=== PATIENT | female | born 1985 | race Caucasian/White ===

== ENCOUNTER 2017-02-26 18:30 | Emergency (ER) | payer MEDICAID ==
[~2017-02-26] VITALS: Ht 157.5 cm; Wt 79.8 kg
[2017-02-26 19:07] LABS: URINE BILIRUBIN - DIPSTICK 1+ (NEG); URINE BLOOD NEGATIVE (NEG)
--- NOTE | 2017-02-26 19:09 | Urgent Treatment Center Report ---
History of Present Issue Date/Time Seen by Provider 02/26/17 7446 Visit Reason Pt arrived:Walked Presenting Problem:PT BELIEVES THAT SHE MAY HAVE A UTI. PT ALSO C/O DIZZINESS AND BEING LIGHTHEADED. PT ADVISES SHE IS CURRENTLY 19 WEEKS Location if Accident: Onset of symptoms date/time:/ or onset unknown for:MEDICAL HX UNKNOWN Have you (or family members/close friends) recently traveled outside the [place]? N If Yes, where/when: Have you had exposure to infectious disease within the past month? TB? Other? 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 State that she has been feeling dizzy and light headed. States that for the last few days she just over all has not felt well SHe has been having some cramping like pain in the bottom of her stomach and thought maybe she had a UTI and that could be why she didn't feel well ALLERGIES Coded Allergies: azithromycin (Mild, 02/26/17) fluconazole (From DIFLUCAN) (Mild, 02/26/17) tetanus and diphtheria toxoids (Mild, 02/26/17) History Medical History General CAD? No Angina: No [place]: No Hypertension? No Hyperlipidemia? No CHF? No DVT? No PE? No COPD? No Asthma? No Anemia? No GERD? No Gastric ulcers? No GI Bleed? No Hernia? No Thyroid Problems? No Hypothyroidism? No CVA? No Seizures? No Diabetes? No Renal Insuffiency? No UTI? No Stones? No BPH? No GB Disease: No Nephritic Syndrome? No Asplenia? No Hepatitis? No Sickle Cell Disease? No Arthritis? No Migraines? No Cataracts? No Glaucoma? No MRSA? No HIV? No TB? No Anxiety? No Depression? No Cancer? No More? No Immunization HX DT/Tetanus Refuses Surgical Hx Previous Surgery?N Social History Smoking Hx Smoker: Never Smoker Tobacco: No Alcohol Alcohol: No Review of Systems All Other Systems Reviewed and Negative Comment Cramping like pain in the bottom of her abdomen and thinks she may have a UTI Physical Exam Vital Signs Vital Signs Date Time Temp Pulse Resp B/P Pulse O2 O2 Flow FiO2 Ox Delivery Rate 02/26 1846 97.4 107 20 105/79 98 General Appearance Appears ill, pale in color sitting on exam table Respiratory Status Yes: trachea midline, chest symmetrical, non tender chest. No: respiratory distress. Lung Sounds bilateral: normal breath sounds, lungs clear. 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 No Results/Orders Laboratory Tests 02/26/171858: Urine Test POSITIVE 02/26/171839: Urine Color YELLOW, Urine Appearance Clear, Urine pH 6.5, Ur Specific [place] 1.025, Urine Protein NEGATIVE, Urine Ketones 80, Urine Blood NEGATIVE, Urine Nitrate NEGATIVE, Urine Bilirubin 1+ H, Urine Urobilinogen 1.0, Ur Leukocyte Esterase NEGATIVE, Urine Glucose NEGATIVE Orders Procedure Date/time Status [facility] URINE 02/26 1859 Complete [place] URINE DIPSTICK 02/27 1840 Complete Progress [facility] Progress Notes Comment Due to patient being and significance of complaints it was recommended that patient be transfered to ER, ER notified report given and patient sent to room 11 Departure Departure Time of Disposition 1907 Disposition Still a Patient Clinical Impression Primary Impression: Abdominal pain Qualifiers: Abdominal location: unspecified location Qualified Code: R10.9 - Unspecified abdominal pain Condition STABLE at 1909
--- NOTE | 2017-02-26 19:09 | Urgent Treatment Center Report ---
History of Present Issue Date/Time Seen by Provider 02/26/17 8562 Visit Reason Pt arrived:Walked Presenting Problem:PT BELIEVES THAT SHE MAY HAVE A UTI. PT ALSO C/O DIZZINESS AND BEING LIGHTHEADED. PT ADVISES SHE IS CURRENTLY 19 WEEKS Location if Accident: Onset of symptoms date/time:/ or onset unknown for:MEDICAL HX UNKNOWN Have you (or family members/close friends) recently traveled outside the [place]? N If Yes, where/when: Have you had exposure to infectious disease within the past month? TB? Other? 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 State that she has been feeling dizzy and light headed. States that for the last few days she just over all has not felt well SHe has been having some cramping like pain in the bottom of her stomach and thought maybe she had a UTI and that could be why she didn't feel well ALLERGIES Coded Allergies: azithromycin (Mild, 02/26/17) fluconazole (From DIFLUCAN) (Mild, 02/26/17) tetanus and diphtheria toxoids (Mild, 02/26/17) History Medical History General CAD? No Angina: No [place]: No Hypertension? No Hyperlipidemia? No CHF? No DVT? No PE? No COPD? No Asthma? No Anemia? No GERD? No Gastric ulcers? No GI Bleed? No Hernia? No Thyroid Problems? No Hypothyroidism? No CVA? No Seizures? No Diabetes? No Renal Insuffiency? No UTI? No Stones? No BPH? No GB Disease: No Nephritic Syndrome? No Asplenia? No Hepatitis? No Sickle Cell Disease? No Arthritis? No Migraines? No Cataracts? No Glaucoma? No MRSA? No HIV? No TB? No Anxiety? No Depression? No Cancer? No More? No Immunization HX DT/Tetanus Refuses Surgical Hx Previous Surgery?N Social History Smoking Hx Smoker: Never Smoker Tobacco: No Alcohol Alcohol: No Review of Systems All Other Systems Reviewed and Negative Comment Cramping like pain in the bottom of her abdomen and thinks she may have a UTI Physical Exam Vital Signs Vital Signs Date Time Temp Pulse Resp B/P Pulse O2 O2 Flow FiO2 Ox Delivery Rate 02/26 1846 97.4 107 20 105/79 98 General Appearance Appears ill, pale in color sitting on exam table Respiratory Status Yes: trachea midline, chest symmetrical, non tender chest. No: respiratory distress. Lung Sounds bilateral: normal breath sounds, lungs clear. 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 No Results/Orders Laboratory Tests 02/26/171858: Urine Test POSITIVE 02/26/171839: Urine Color YELLOW, Urine Appearance Clear, Urine pH 6.5, Ur Specific [place] 1.025, Urine Protein NEGATIVE, Urine Ketones 80, Urine Blood NEGATIVE, Urine Nitrate NEGATIVE, Urine Bilirubin 1+ H, Urine Urobilinogen 1.0, Ur Leukocyte Esterase NEGATIVE, Urine Glucose NEGATIVE Orders Procedure Date/time Status [facility] URINE 02/26 1859 Complete [place] URINE DIPSTICK 02/27 1840 Complete Progress [facility] Progress Notes Comment Due to patient being and significance of complaints it was recommended that patient be transfered to ER, ER notified report given and patient sent to room 11 Departure Departure Time of Disposition 1907 Disposition Still a Patient Clinical Impression Primary Impression: Abdominal pain Qualifiers: Abdominal location: unspecified location Qualified Code: R10.9 - Unspecified abdominal pain Condition STABLE at 1909
[2017-02-26] MEDS ORDERED: METFORMIN ER500 M1 PO (19:19)
[2017-02-26] MEDS ORDERED: PRENATA1 CTB PO (19:21)
--- NOTE | 2017-02-26 19:41 | Emergency Room Report ---
History of Present Illness Time Seen by 1905 Presenting Problem in Triage Pt arrived:Walked Presenting Problem:DIZZINESS, THOUGHT SHE HAD A UTI. STATES SHE IS HAVING SOME PAINS IN VAGINAL AREA, BURNING WITH UNINATION. BLOOD SUGARS LOW. 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 N Clinical Suspician of Infection? N Mental Status: 1 - Regular (Normal Baseline) Sepsis Risk:Possible Sepsis Risk Have you (or family members/close friends) recently traveled outside the [place]? N If Yes, where/when: Have you had exposure to infectious disease within the past month? N TB? Other? Specify: Comment The patient is 19 weeks gestation . She is 2 para 1. She complains of intermittent suprapubic cramping pains for 2 weeks. They have been coming more constant over the past couple of days. She saw her language arts teacher's partner in the office on Tuesday or days ago for these symptoms as well as the fact that she had not felt the baby moving in a couple of days. They did an ultrasound on that day that was normal. She also told them that she thought she might have a UTI because of the pains, but they told her she did not have a UTI. No vaginal bleeding. She says she also has felt lightheaded today. She says her blood sugar was 77 this morning, but when she rechecked it later was 120. She is diabetic, taking metformin. She is not on insulin. She says she has a previous history with her first child of some sort of liver issue with the bile leaking into her abdomen at the time of delivery. Her first child was delivered at 38 weeks. The patient came in again because she wanted to be checked again for a UTI. She also wants her baby's heartbeat checked. She also says that she had [place] contractions with her first child and thought these might be those as well. The patient was seen in the urgent treatment center and sent to the emergency department for further evaluation. (Kelly SOUZA, Greg) Source patient, RN notes reviewed, old records Exam Limitations no limitations Cardiac Chest Pain Chest pain indicative of cardiac No Timing/Duration this evening Severity moderate ALLERGIES Coded Allergies: azithromycin (Mild, 02/26/17) fluconazole (From DIFLUCAN) (Mild, 02/26/17) tetanus and diphtheria toxoids (Mild, 02/26/17) Home Medications Reported Medications Metformin HCl (Metformin ER) 500 MG PO BID #2 VIT37/IRON/FOLIC ACID ([place] Chewable Tablet) 1 CTB PO DAILY #2 (Rajesh SOUZA,Hong Lopez) History Medical History General CAD? No Angina: No [place]: No Hypertension? No Hyperlipidemia? No CHF? No DVT? No PE? No COPD? No Asthma? No Anemia? No GERD? No Gastric ulcers? No GI Bleed? No Hernia? No Thyroid Problems? No Hypothyroidism? No CVA? No Seizures? No Diabetes? No Renal Insuffiency? No End Stage Renal Disease? No UTI? No Stones? No BPH? No GB Disease: No Nephritic Syndrome? No Asplenia? No Hepatitis? No Sickle Cell Disease? No Arthritis? No Migraines? No Cataracts? No Glaucoma? No MRSA? No HIV? No TB? No Anxiety? No Depression? No Cancer? No More? 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 (Greg Mendoza MD) Physical Exam Vital Signs Vital Signs Date Time Temp Pulse Resp B/P Pulse O2 O2 Flow FiO2 Ox Delivery Rate 02/26 2051 93 20 95/50 98 02/26 2013 93 20 100/52 98 02/26 1943 108/66 02/26 1906 98.4 101 20 108/66 98 02/26 1846 97.4 107 20 105/79 98 General Appearance normal appearance, no apparent distress Eye Exam - bilateral eye normal exam, bilateral eye PERRL, bilateral eye EOMI Ear, Nose, Throat hearing grossly normal, normal ENT inspection Neck normal inspection, non-tender, supple, full range of motion Respiratory Status Yes: trachea midline, chest symmetrical, non tender chest. No: respiratory distress. Lung Sounds bilateral: normal breath sounds, lungs clear. Cardiovascular normal exam, regular rate/rhythm, no peripheral edema, no gallop, no JVD, no murmur, no rub, normal peripheral pulses Peripheral Pulses Pulses normal Yes Gastrointestinal normal bowel sounds, soft, no organomegaly, no guarding, no rebound, tenderness (suprapubic), uterus consistent with gestational dates Extremities non-tender, normal range of motion, normal inspection Neurologic alert, normal exam, oriented x 3 Mental status normal mood/affect Skin intact, normal color, warm/dry (Kelly SOUZA, Greg) Comment fht 145 (Rajesh SOUZA,Hong Lopez) Medical Decision Making LABS/Meds/Orders Pt receiving controlled substance in ED? No Results/Orders Laboratory Tests 02/26/17 1950: Sodium 136, Potassium 3.8, Chloride 101, Carbon Dioxide 24, BUN 5 L, Creatinine 0.4 L, Estimated Creat Clear 262 H, Estimated GFR (MDRD) 189, Glucose 80, Calcium 9.0, Total Bilirubin 0.5, AST 12 L, ALT 20, Alkaline Phosphatase 62, Total Protein 7.7, Albumin 3.2 L, Globulin 4.5 H, Albumin/Globulin Ratio 0.7 L, WBC 8.0, RBC 4.45, Hgb 13.1, Hct 38.0, MCV 85.4, RDW 14.0, Plt Count 224, MPV 7.7, Gran % 73.7, Gran # 5.9, Lymphocytes % 22.4, Monocytes % 3.4, Eosinophils % 0.4, Basophils % 0.1, Lymphocytes # 1.8, Monocytes # 0.3, Eosinophils # 0.0, Basophils # 0.0, PUBS MCHC 34.3, MCH 29.3 02/26/17 1859: Urine Test POSITIVE 02/26/17 1840: Urine Color YELLOW, Urine Appearance Clear, Urine pH 6.5, Ur Specific [place] 1.025, Urine Protein NEGATIVE, Urine Ketones 80, Urine Blood NEGATIVE, Urine Nitrate NEGATIVE, Urine Bilirubin 1+ H, Urine Urobilinogen 1.0, Ur Leukocyte Esterase NEGATIVE, Urine Glucose NEGATIVE Current Medication Orders Sig/Gerard Start time Last Medication Dose Route Stop Time Status Admin Sodium Chloride 1,000 ML .STK-MED ONE 02/27 1948 DC IV Sodium Chloride 10 ML PRN PRN 02/26 1945 AC IV 02/27 1945 Sodium Chloride 1,000 ML .Q1H1M 02/26 1945 DC 02/26 IV 02/26 Orders Procedure Date/time Status IV SALINE LOCK 02/26 1946 Active GEN NSG/PT REQ (NOT FOR MEDS!) 02/26 1946 Active CBC WITH AUTO DIFF 02/26 1946 Complete CHEM 12 PROFILE 02/26 1946 Complete [place] URINE 02/26 1859 Complete [place] URINE DIPSTICK 02/27 1840 Complete Progress - 8:00 PM: At shift change, I have discussed the patient with Dr. Mena, who will assume care of the patient at this time. I have discussed all clinical information including history, physical and diagnostic study results. Preliminary diagnoses based on information available at this point have been recorded by me. Controlled substance administration and critical care statement are also preliminary, as of the time of handoff. (Greg Mendoza MD) Departure Departure Condition STABLE ED Critical Care Critical Care No (Greg Mendoza MD) Departure Time of Disposition 2101 Disposition DC Home or Self Care(routine) Clinical Impression Primary Impression: Abdominal pain affecting Secondary Impressions: Qualifiers: Weeks of gestation: 19 weeks Qualified Code: Z3A.19 - 19 weeks gestation of Patient Instructions DI for -- Discomforts and Remedies Additional Instructions call your ob dr for follow up Discharge Counseling Counseled pt/family regarding diagnosis, test results, medications/RX, follow up needs (Hong Mena MD) at 2005 at 2105
[2017-02-26 20:06] LABS: HEMOGLOBIN 13.1 g/dL (12.2-16.2); LYMPH # 1.8 K/mm3 (0.7-4.5); LYMPH % 22.4 % (10-50.0)
[2017-02-26 21:17] VITALS: BP 95/50
== END 2017-02-26 21:18 | disposition home or self-care (01) ==
LOC: UTC 18:30 → ER 18:43 → UTC 18:43 → ER 21:18
PROVIDERS: Emergency Medicine; Nurse Practitioner
DX: O26.892 Other specified pregnancy related conditions, second trimester (principal); R10.9 Unspecified abdominal pain; O24.112 Pre-existing type 2 diabetes mellitus, in pregnancy, second trimester; Z3A.19 19 weeks gestation of pregnancy; Z79.84 Long term (current) use of oral hypoglycemic drugs; E11.9 Type 2 diabetes mellitus without complications

== ENCOUNTER 2017-03-15 18:44 | Outpatient (CLI) | payer MEDICAID ==
[~2017-03-15] VITALS: Ht 157.5 cm; Wt 78.9 kg
[~2017-03-15 18:44] MED LIST: METFORMIN ER500 M1 PO; PRENATA1 CTB PO
[2017-03-15 19:15] VITALS: BP 101/64
[2017-03-15 19:38] LABS: URINE BILIRUBIN - DIPSTICK NEGATIVE (NEG); URINE BLOOD NEGATIVE (NEG)
[2017-03-15] MEDS ORDERED: DIABETA2.5 MG PO (19:39)
[2017-03-15 19:45] LABS: AMPHETAMINES/METAMPHETAMINES NEGATIVE ng/mL (<1000)
[2017-03-15 19:54] LABS: URINE SQUAMOUS CELLS 20-50 #/hpf (0-5)
== END 2017-03-15 20:05 ==
LOC: OB 18:44 → OBOUT 18:44
PROVIDERS: Obstetrics & Gynecology
DX: O26.92 Pregnancy related conditions, unspecified, second trimester (principal); Z3A.21 21 weeks gestation of pregnancy; R30.9 Painful micturition, unspecified

== ENCOUNTER 2017-04-24 19:15 | Emergency (ER) | payer MEDICAID ==
[~2017-04-24] VITALS: Ht 157.5 cm; Wt 81.2 kg
[~2017-04-24 19:15] MED LIST changes: +DIABETA2.5 MG PO
--- OUTSIDE RECORDS SUMMARY | 2017-04-24 19:40 | External Medical Summary Rpt | CCD ---
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 Name Role Phone [facility] Unavailable Unavailable [facility], [facility] Unavailable Unavailable [place], [facility] Unavailable Unavailable [facility]PITAL, [facility] Unavailable [facility]available [facility], [facility] Unavailable Unavailable ANESTHESIA [facility], [facility] ANESTHESIA [facility] EMERGENCY MEDICINE Unavailable Unavailable PHYSICIAN, EMERGENCY MEDICINE PHYSICIAN [facility] Un[facility], [facility], [facility] Unavailable Unavailable [facility], [facility], Unavailable Unavailable [facility]- Unavailable Unavailable ANT[facility]A, [facility]available [facility], [facility] Unavailable Unavailable EMERGENCY PHYS, [facility] Unavailable Unavailable HOSPITALS, [facility], Unavailable Unavailable [facility], Unavailable Unavailable PLLC, [facility] Unavailable [place] Continuity of Care Document - 03-04-2014 through 2016 Problems Code Diagnosis DOS Provider Status [id number] PRE-EXISTIN 03-07-2017 [facility] MELLITUS PREG 2ND TRI [id number] MATERNAL 03-07-2017 [facility] TRANSVERSE [facility] & OBLIQUE LIE NA/UNS [id number] MATERNAL 03-07-2017 [facility]NS SERV TYPE SCAR [facility] PREV DEL Z36 ENCOUNTER 03-07-2017 [facility] SCREENING OF MOTHER Z3A20 20 WEEKS 03-07-2017 [facility] OF [facility] [id number] OTHER SPEC 02-26-2017 [facility] RELATED [facility] COND 2ND TRIMESTER R1030 LOWER 02-26-2017 [facility]OM[facility]AL [facility] PAIN [facility] UNSPECIFIED Z3A19 19 WEEKS 02-26-2017 [facility], OF [facility] [id number] DECREASED 02-22-2017 [facility] MOV[facility] THIRD TRIMESTER NA/UNS Z3A18 18 WEEKS 02-22-2017 [facility] OF [facility] Z3A17 17 WEEKS 02-14-2017 [facility] OF [facility] Z3A15 15 WEEKS 01-31-2017 [facility] [id number] SUPERVISION 01-26-2017 [facility] RISK [facility] HOSPITALS UNS TRIMESTER O219 VOMITING OF 01-06-2017 [facility] UNSPECIFIED [facility] [id number] PRE-EXISTIN 01-06-2017 [facility] T[facility] 2 SERV DIABETES [facility] MELLITUS PREG 1ST TRI Z3A11 11 WEEKS 01-06-2017 [facility] OF [facility] Z8639 PERSONAL HX 01-06-2017 [facility] ENDOCRN [facility] NUTRITIONL& METAB DISEASE E119 TYPE 2 12-31-2016 [facility] WITHOUT COMPLICATIO NS O7589 OTHER 12-31-2016 [facility] NS LABOR & DELIVERY R102 PELVIC AND 12-31-2016 [facility] O021 MISSED 12-14-2016 [facility] O200 THREATENED 12-14-2016 [facility] Z3A08 8 WEEKS 12-14-2016 [facility] GESTATION HEALTH OF MEDICAL GROUP O2691 12-11-2016 [facility] RELATED HEALTH CONDITIONS IKRBY UNS 1ST TRIMESTER O9989 OTH DZ & 12-11-2016 [facility] CON[facility] COMP N EMERGENCY PREG PHYS [facility]IL[facility]TH PUERPERIUM R109 UNSPECIFIED 12-11-2016 [facility] ABDOMINAL N EMERGENCY PAIN PHYS Z3A01 LESS THAN 8 12-11-2016 [facility] WEEKS N EMERGENCY GESTATION PHYS OF [id number] OTHER LONG 12-11-2016 [facility] TERM [facility]ALTH CURRENT [place] DRUG THERAPY O4691 ANTEPARTUM 12-07-2016 [facility] HEMORRHAGE HEALTH OF UNS FIRST CURT TRIMESTER Z3480 ENC 12-07-2016 [facility] SUPERVISION HEALTH OF OT NORMAL [place] PREG UNS TRIMESTER L74696 OTHER SPEC 12-04-2016 [facility] RELATED COND UNS TRIMESTER R1013 EPIGASTRIC 12-04-2016 EMERGENCY PAIN MEDICINE PHYSICIAN N921 EXCESS & 11-23-2016 [facility] FREQUENT HEALTH OF MENSTRUATIO [place] N W/IRREGULAR CYCLE K50108 MATERNAL 11-23-2016 [facility] TRANS SCAR [place] PREV DEL Z139 ENCOUNTER 11-23-2016 [facility] FOR [facility] SCREENING HOLDINGS UNSPECIFIED Z3490 ENC 11-23-2016 LAB YONG SUPERVISION SH[facility] NORMAL HOLDINGS PREG UNS UNS TRIMESTER L270 GEN SKIN 11-09-2016 [facility] D/T [facility] & [facility] MED TAKEN INTERNALLY [id number] ADVERSE EFF 11-09-2016 [facility] ANTI-INFECT [facility]OSPITAL /PARASIT INIT ENC [id number] ADVERS EFF 11-09-2016 [facility] O[facility] RX MEDS N EMERGENCY BIO PHYS SUBSTANCES INIT ENC E039 HYPOTHYROID 11-08-2016 [facility] ISM [facility] UNSPECIFIED E6609 OTHER 11-08-2016 [facility] OB[facility]ITY DUE MEDICAL TO EXCESS CLINIC, [facility] CALORIES N390 URINARY 11-08-2016 [facility] TRACT MEDICAL INFECTION CLINIC, [facility] SITE NOT SPECIFIED R300 DYSURIA 11-08-2016 [facility] R5383 OTHER 11-08-2016 [facility] FATIGUE [facility] Z1321 ENCOUNTER 11-08-2016 [facility] FOR [facility] SCREENING FOR NUTRITIONAL DISORDER G00775 ENCOUNTER 11-08-2016 [facility] FOR [facility] SCREENING FOR LIPOID DISORDERS Z6832 BODY MASS 11-08-2016 [facility] INDEX BMI MEDICAL 32.0-32.9 CLINIC, [facility] ADULT M419 SCOLIOSIS 07-24-2016 [facility]Y, [facility] M542 CERVICALGIA 07-24-2016 [facility] CHERRY, [facility] M545 LOW BACK 07-24-2016 S[facility] Gilmore PAIN DILIP, [facility] Z113 ENCOUNTER 07-22-2016 [facility] SCREEN MEDICAL INFECTIONS CLINIC, [facility] SEXL MODE TRANSMISSN Z6831 BODY MASS 07-22-2016 [facility] INDEX BMI MEDICAL 31.0-31.9 CLINIC, [facility] ADULT J029 ACUTE 07-13-2016 [facility] PHARYNGITIS [facility] UNSPECIFIED N3001 ACUTE 07-13-2016 [facility] CYSTITIS [facility] WITH HEMATURIA R1110 VOMITING 06-06-2016 [facility] UNSPECIFIED N EMERGENCY PHYS M791 MYALGIA 04-23-2016 [facility] R079 CHEST PAIN 04-23-2016 [facility] K529 NONINFECTIV 03-02-2016 [facility] E [facility] GASTROENTER ITIS & COLITIS UNS D22186 PAIN IN 02-09-2016 [facility] LEFT MEDICAL SHOULDER CLINIC, [facility] R739 HYPERGLYCEM 02-04-2016 [facility] IA [facility] UNSPECIFIED Z205 CONTACT W/ 02-04-2016 [facility] & & SUSPECTED [facility] EXPOSURE VIRAL HEPATITIS E1165 TYPE 2 01-26-2016 EMERGENCY DIABETES MEDICINE MELLITUS PHYSICIAN WITH HYPERGLYCEM IA G8929 OTHER 01-12-2016 [facility] & CHRONIC [facility] PAIN N72 INFLAMMATOR 01-12-2016 [facility] & Y DISEASE [facility] OF CERVIX UTERI Q71725 PAIN IN 01-06-2016 [facility] [place] LEFT KNEE DLIIP [id number] CONTUSION 01-06-2016 [facility] & OF LEFT [facility] KNEE INITIAL ENCOUNTER [id number] STRAIN 12-31-2015 EMERGENCY MUSCLE & MEDICINE TENDON BACK PHYSICIAN WALL THORAX INIT ENC [id number] SPRAIN 12-31-2015 EMERGENCY CALCANEOFIB MEDICINE ULAR LIG LT PHYSICIAN ANKLE INITIAL ENC R200 ANESTHESIA 12-23-2015 EMERGENCY OF SKIN MEDICINE PHYSICIAN Z760 ENCOUNTER 12-11-2015 [facility] FOR ISSUE MEDICAL OF REPEAT CLINIC, [facility] PRESCRIPTIO N Q33237 OTHER 11-14-2015 [facility] & MUCOPURULEN [facility] T CONJUNCTIVI TIS BILATERAL H1033 UNSPECIFIED 11-14-2015 EMERGENCY ACUTE MEDICINE CONJUNCTIVI PHYSICIAN TIS BILATERAL J069 ACUTE UPPER 11-10-2015 [facility] RESPIRATORY INFECTION UNSPECIFIED R79527 UNSPECIFIED 11-10-2015 [facility] ASTHMA [facility] UNCOMPLICAT ED R05 COUGH 11-10-2015 [facility] R509 FEVER 11-10-2015 [facility] & UNSPECIFIED [facility] 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 11-10-2015 [facility] & CURRENT USE [facility] OF INSULIN E860 DEHYDRATION 10-29-2015 EMERGENCY MEDICINE PHYSICIAN R112 NAUSEA WITH 10-29-2015 [facility] & VOMITING [facility] UNSPECIFIED R197 DIARRHEA 10-29-2015 [facility] & UNSPECIFIED [facility] N3000 ACUTE 10-05-2015 [facility] CYSTITIS [facility] WITHOUT HEMATURIA R5382 CHRONIC 09-19-2015 [facility] FATIGUE MEDICAL UNSPECIFIED CLINIC, P[facility] H06263I INSECT BITE 09-12-2015 EMERGENCY MEDICINE NONVENOMOUS PHYSICIAN LT FOREARM INITIAL ENC E282 POLYCYSTIC 08-09-2015 [facility] OVARIAN [facility] SYNDROME J449 CHRONIC 08-09-2015 [facility] OBSTRUCTIVE [facility] PULMONARY DISEASE UNS P80565 PERSONAL 08-09-2015 [facility] & HISTORY OF [facility] URINARY TRACT INFECTIONS E669 OBESITY 07-23-2015 [facility] UNSPECIFIED [facility]IMARY CARE- [facility] N946 DYSMENORRHE 07-23-2015 [facility] A PRIMARY UNSPECIFIED CARE- AN[facility] M2550 PAIN IN 04-11-2015 [facility] UNSPECIFIED MEDICAL JOINT CLINIC, [facility] Z309 ENCOUNTER 04-11-2015 [facility] FOR MEDICAL CONTRACEPTI CLINIC, [facility] VE MANAGEMENT UNS 35358 OBESITY, 03-07-2015 [facility] UNSPECIFIED MEDICAL CLINIC, [facility] 6253 DYSMENORRHE 03-07-2015 [facility] A MEDICAL CLINIC, [facility] 04048 CHRONIC 03-07-2015 [facility] FATIGUE MEDICAL SYNDROME CLINIC, [facility] 5990 URINARY 02-09-2015 [facility] & TRACT [facility] INFECTION SITE NOT SPECIFIED 92418 HEMATURIA 02-09-2015 [facility] & UNSPECIFIED [facility] 5950 ACUTE 01-15-2015 [facility] CYSTITIS [facility] 56666 ABDOMINAL 12-10-2014 [facility] S. PAIN OTHER DILIP SPECIFIED SITE 7831 ABNORMAL 11-28-2014 [facility] WEIGHT GAIN MEDICAL CLIN[facility], [facility] V221 SUPERVISION 11-10-2014 [facility] OF OTHER HEALTH OF NORMAL [place] 01463 ABN FETL 11-09-2014 [facility] HRT H RATE/RHYTHM ANESTHESIA DELIV W/WO PSC ANTPRTM COND 52009 PRIMARY 11-09-2014 [facility] UTERINE H INERTIA ANESTHESIA WITH PSC DELIVERY 5768 OTHER 11-08-2014 [facility] SPECIFIED REGIONAL DISORDERS MEDICAL OF BILIARY CENTE TRACT 45681 LIVER 11-08-2014 [facility] BILIARY REGIONAL TRACT D/O MEDICAL PREG DEL CENTE W/WO ANTPRTM 67250 OTH CURRENT 11-08-2014 [facility] MATERNAL REGIONAL CCE MEDICAL W/DELIVERY CENTE 69714 FETOPELVIC 11-08-2014 [facility] DISPROPORTI REGIONAL ON, MEDICAL DELIVERED CENTE 69033 OTHER AND 11-08-2014 [facility] UNSPECIFIED REGIONAL UTERINE MEDICAL INERTIA CENTE W/DELIVERY V0251 CARRIER/ALISSA 11-08-2014 [facility] CENTE STREPTOCOCC [place] V270 OUTCOME OF 11-08-2014 [facility] DELIVERY REGIONAL SINGLE MEDICAL LIVEBORN CENTE 32218 EXCESS 10-10-2014 [facility] [place] AFFECT MGMT MOTH ANTPRTM Allergies, Adverse Reactions, Alerts Clinical Alert Notifications Alert Diabetes: no eye exam in the last 365 days Diabetes: no lipid panel in the last 365 days Diabetes: no urine protein screening in the last 365 days Medications Na ND Rx Da Fi Fi Am Da Di Ph RX Ph St me C No te ll ll ou ys ag ar # ys at rm s nt no ma ic us Or Da si cy ia de te s n re d NC 68 09 10 12 2 00 WA Ac OM 38 -1 -1 .0 00 L- ti ET 20 8- 3- 00 07 MA ve LOPEZ 04 20 20 42 RT ZI 00 17 17 09 NE 1 38 PH AR 12 MA .5 CY MG #4 93 TA BL ET ME 53 09 10 12 30 00 WA Ac TF 74 -1 -1 0. 00 L- ti OR 60 8- 3- 00 07 MA ve VT 17 20 20 0 42 RT N 80 17 17 09 HC 1 48 PH L AR ER MA CY 50 0 #4 MG 93 TA BL ET FR 99 09 10 10 25 00 CO Ac EE 07 -1 -1 0. 00 L- ti ST 30 8- 3- 00 08 MA ve YL 70 20 20 0 84 RT E 82 17 17 17 LI 7 00 PH TE AR MA TE CY ST #4 ST 93 RI P FR 99 09 10 10 25 00 WA Ac EE 07 -1 -1 0. 00 L- ti ST 30 8- 3- 00 08 MA ve YL 13 20 20 0 84 RT E 00 17 17 17 28 1 01 PH G AR LA MA NC CY ET S #4 93 GL 00 09 10 30 30 00 CO Ac YB 09 -1 -1 .0 00 L- ti UR 38 8- 3- 00 07 MA ve ID 34 20 20 43 RT E 30 17 17 01 2. 1 50 PH 5 AR MG MA CY TA BL #4 ET 93 ME 53 08 09 12 30 00 WA Ac TF 74 -2 -1 0. 00 L- ti OR 60 1- 5- 00 07 MA ve VT 17 20 20 0 42 RT N 80 17 17 09 HC 1 48 PH L AR ER MA CY 50 0 #4 MG 93 TA BL ET NC 68 08 09 12 2 00 WA Ac OM 38 -2 -1 .0 00 L- ti ET 20 1- 5- 00 07 MA ve LOPEZ 04 20 20 42 RT ZI 00 17 17 09 NE 1 38 PH AR 12 MA .5 CY MG #4 93 TA BL ET NC 68 08 09 12 2 00 WA Ac OM 38 -1 -0 .0 00 L- ti ET 20 4- 8- 00 07 MA ve LOPEZ 04 20 20 42 RT ZI 00 17 17 09 NE 1 38 PH AR 12 MA .5 CY MG #4 93 TA BL ET FR 99 07 08 10 25 00 WA Ac EE 07 -3 -2 0. 00 L- ti ST 30 1- 5- 00 08 MA ve YL 70 20 20 0 84 RT E 82 17 17 17 LI 7 00 PH TE AR MA TE CY ST #4 ST 93 RI P FR 99 07 08 10 25 00 WA Ac EE 07 -3 -2 0. 00 L- ti ST 30 1- 5- 00 08 MA ve YL 13 20 20 0 84 RT E 00 17 17 17 28 1 01 PH G AR LA MA NC CY ET S #4 93 NC 68 07 08 12 2 00 WA Ac OM 38 -2 -1 .0 00 L- ti ET 20 5- 8- 00 07 MA ve LOPEZ 04 20 20 42 RT ZI 00 17 17 09 NE 1 38 PH AR 12 MA .5 CY MG #4 93 TA BL ET ME 53 07 08 12 30 00 WA Ac TF 74 -2 -1 0. 00 L- ti OR 60 5- 8- 00 07 MA ve VT 17 20 20 0 42 RT N 80 17 17 09 HC 1 48 PH L AR ER MA CY 50 0 #4 MG 93 TA BL ET NC 65 06 07 20 5 00 RI Ac OM 16 -2 -1 .0 00 TE ti ET 20 0- 4- 00 01 ve LOPEZ 74 20 20 66 AI ZI 51 17 17 92 D NE 0 43 PH AR 12 MA .5 CY MG #3 94 TA 3 BL ET ME 62 06 07 90 30 00 RI Ac TF 75 -1 -1 .0 00 TE ti OR 60 9- 4- 00 01 ve VT 14 20 20 64 AI N 20 17 17 93 D HC 1 66 PH L AR ER MA CY 50 0 #3 MG 94 3 TA BL ET FR 99 06 07 10 25 00 RI Ac EE 07 -0 -0 0. [address] 30 7- 7- 00 01 ve YL 13 20 20 0 66 AI E 00 17 17 62 D 28 1 61 PH G AR LA MA NC CY ET S #3 94 3 NC 00 06 07 30 30 00 RI Ac EN 90 -0 -0 .0 00 TE ti AT 45 7- 7- 00 01 ve AL 31 20 20 66 AI 36 17 17 61 D TA 0 97 PH BL AR ET MA CY #3 94 3 FR 99 06 07 1. 30 00 RI Ac EE 07 -0 -0 [address] 30 7- 7- 0 01 ve YL 70 20 20 66 AI E 91 17 17 62 D FR 4 59 PH EE AR DO MA M CY LI TE #3 94 ME 3 TE R FR 99 06 07 10 25 00 RI Ac EE 07 -0 -0 0. [address] 30 7- 7- 00 01 ve YL 70 20 20 0 66 AI E 82 17 17 62 D LI 7 60 PH TE AR MA TE CY ST #3 ST 94 RI 3 P PH 42 05 06 10 3 00 RI Ac EN 19 -2 -1 .0 00 TE ti AZ 20 2- 6- 00 01 ve OP 80 20 20 66 AI YR 20 17 17 24 D ID 1 09 PH IN AR E MA 20 CY 0 MG #3 94 TA 3 B CI 00 05 06 20 10 00 RI Ac NC 14 -2 -1 .0 00 TE ti OF 39 2- 6- 00 01 ve LO 92 20 20 66 AI XA 80 17 17 24 D CI 1 10 PH N AR HC MA L CY 50 0 #3 MG 94 3 TA B FL 16 05 06 2. 4 00 RI Ac UC 71 -2 -1 00 00 TE ti ON 40 2- 6- 0 01 ve AZ 69 20 20 66 AI OL 30 17 17 24 D E 1 11 PH 20 AR 0 MA MG CY TA #3 BL 94 ET 3 ME 62 05 05 90 30 00 RI Ac TF 75 -0 -2 .0 00 TE ti OR 60 2- 6- 00 01 ve VT 14 20 20 64 AI N 20 17 17 93 D HC 1 66 PH L AR ER MA CY 50 0 #3 MG 94 3 TA BL ET ME 62 03 05 90 30 00 RI Ac TF 75 -3 -0 .0 00 TE ti OR 60 1- 5- 00 01 ve VT 14 20 20 64 AI N 20 17 17 93 D HC 1 66 PH L AR ER MA CY 50 0 #3 MG 94 3 TA BL ET ME 00 03 04 30 30 00 KE Ac TF 09 -1 -0 .0 00 NT ti OR 37 5- 7- 00 01 UC ve VT 26 20 20 04 KY N 71 17 17 21 HC 0 19 CV L S ER PH AR 50 MA 0 CY MG LL TA C, BL ET DB A CV S PH AR MA CY #6 94 2 IB 55 02 02 90 30 00 ES Ac UP 11 -0 -2 .0 00 TI ti RO 10 2- 4- 00 00 LL ve FE 68 20 20 34 N 40 17 17 58 CL 80 5 26 IN 0 IC MG PH TA AR BL MA ET CY ME 60 01 02 30 30 00 ES Ac TF 50 -2 -1 .0 00 TI ti OR 50 7- 7- 00 00 LL ve VT 26 20 20 33 N 00 17 17 95 CL HC 2 67 IN L IC ER PH 50 AR 0 MA MG CY TA BL ET FONTANA 53 01 02 6. 3 00 RI Ac LF 48 -2 -1 00 00 TE ti AM 90 4- 7- 0 01 ve ET 14 20 20 63 AI HO 60 17 17 05 D XA 1 48 PH ZO AR LE MA -T CY MP #3 DS 94 3 TA BL ET RA 11 01 02 1. 3 00 RI Ac 82 -2 -1 00 00 TE ti VT 23 4- 7- 0 01 ve CO 58 20 20 63 AI NA 24 17 17 05 D ZO 0 49 PH LE AR 3 MA CY CO MB #3 O 94 PA 3 CK CE 00 12 01 21 7 00 WA Ac PH 09 -1 -1 .0 00 LG ti AL 33 9- 3- 00 01 RE ve EX 14 20 20 67 EN IN 70 16 17 54 S 5 16 07 50 66 0 4 MG CA PS UL E NC 10 12 01 12 3 00 WA Ac OM 70 -1 -1 .0 00 LG ti ET 20 9- 3- 00 01 RE ve LOPEZ 00 20 20 67 EN ZI 35 16 17 54 S NE 0 17 07 66 25 4 MG TA BL ET Results Labs Lab Lab Date Result Refere Interp Status Commen Order Detail nces retati t Range on RUBV IgG Ser Ql (04-01-2017 14:02) RUBV POS complet IgG Ser 017 POSITIV ed Ql 14:02 E L Comment: (NOTE) Comment: Rubella IgG Antibody Result Interpretation: Comment: . Comment: Negative: Comment: Rubella IgG antibody not detected. This indicates the absence of Comment: immunity. Negative results do not preclude recent primary infection Comment: if the sample was collected very early during the acute stage of Comment: infection. Comment: . Comment: Positive: Comment: Rubella IgG antibody detected. This indicates acute or past infection Comment: or immunity as the result of vaccination. Comment: . Comment: Indeterminate: Comment: Rubella IgG antibody detected. This indicates a low level response Comment: to vaccination which may require revaccination. Repeat testing in Comment: 10 to 14 days with a new sample may be helpful. Comment: . Comment: Comment: T pallidum IgG Ser Ql IA (04-01-2017 14:02) T NR complet pallidu 017 NONREAC ed m IgG 14:02 TIVE L Ser Ql IA Comment: Nonreactive. No serologic evidence of syphilis. No follow-up necessary unless Comment: clinically indicated (e.g., early syphilis). HCV Ab SerPl Ql EIA (04-01-2017 14:02) HCV Ab NEG complet SerPl 017 NEGATIV ed Ql EIA 14:02 E L Comment: Reference Range: Negative HBV surface Ag SerPl Ql EIA (04-01-2017 14:02) HBV NEG complet surface 017 NEGATIV ed Ag 14:02 E L SerPl Ql EIA Comment: Reference Value: Negative Glucose SerPl-mCnc (04-01-2017 14:02) Glucose 169 74-99 complet 017 mg/dL ed SerPl-m 14:02 Cnc C trach+GC DNA XXX PCR (04-01-2017 13:55) Bacteri Referen complet a XXX 017 ce ed Anaerob 13:55 range: e+Aerob No DNA e Cult for Neisser ia gonorrh oeae detecte d. Bacteri (NOTE) complet a XXX 017 ed Anaerob 13:55 e+Aerob e Cult Bacteri [id number] complet a XXX 017 09 ed Anaerob 13:55 negativ e+Aerob e e Cult (qualif ier value) SCT NGNEG NEGATIV E for Neisser ia gonorrh oeae DNA by nucleic acid amplifi cation. L Chlamydia DNA XXX Ql PCR (04-01-2017 13:55) Bacteri Referen complet a XXX 017 ce ed Anaerob 13:55 Range: e+Aerob No DNA e Cult for Chlamyd ia trachom atis plasmid detecte d. Bacteri (NOTE) complet a XXX 017 ed Anaerob 13:55 e+Aerob e Cult Bacteri [id number] complet a XXX 017 09 ed Anaerob 13:55 negativ e+Aerob e e Cult (qualif ier value) SCT CTNEG NEGATIV E for Chlamyd ia trachom atis plasmid by nucleic acid amplifi cation. L Bacteria Ur Cult (04-01-2017 13:55) Bacteri [id number] complet a XXX 017 9 ed Anaerob 13:55 normal e+Aerob cliff e Cult (findin g) SCT UMXF Mixed urogeni rachel or skin cliff present . Suggest appropr iate recolle ction with timely deliver y to the laborat or, if clinica lly indicat ed. L Bacteri [id number] complet a XXX 017 10,000- ed Anaerob 13:55 100,000 e+Aerob CFU/ml e Cult L CC XXX NOTAP complet VC-aCnc 017 NOT ed 13:55 APPLICA BLE L SPECIME URNG complet N 017 GUTIERREZ ed CONTAIN 13:55 TOP ER COLLECT INFO: ION TUBE FOR URINE L Urinalysis dipstick W Reflex Microscopic panel in Urine (03-15-2017 18:55) Bacteri 2+ O complet a 017 ed [Presen 18:55 ce] in Urine sedimen t by Light microsc opy Mucus 2+ OCC complet [Presen 017 ed ce] in 18:55 Urine sedimen t by Light microsc opy Erythro OCC 0 complet cytes 017 ed [Presen 18:55 ce] in Urine sedimen t by Light microsc opy Epithel 20-50 0#/hp complet ial 017 f - ed cells.s 18:55 5#/hp quamous f [Presen ce] in Urine sedimen t by Microsc opy high power field Leukocy 3-5 O complet bruce 017 wbc/hpf ed [#/volu 18:55 me] in Urine Drugs identified in Urine by Screen method (03-15-2017 18:55) Ampheta NEGATIV <1000 complet mine 017 E ed [Presen 18:55 ce] in Urine by Screen method 11-Hydr NEGATIV <50 complet oxy 017 E ed delta-9 18:55 tetrahy drocann abinol [Presen ce] in Unspeci fied specime n Urinalysis dipstick W Reflex Microscopic panel in Urine (03-15-2017 18:55) Appeara SL CLEAR complet nce of 017 CLOUDY ed Urine 18:55 Bilirub NEGATIV NEG complet in 017 E ed [Presen 18:55 ce] in Urine by Test strip Erythro NEGATIV NEG complet cytes 017 E ed [Presen 18:55 ce] in Urine Color YELLOW YELLOW complet of 017 ed Urine 18:55 Ketones NEGATIV NEG complet 017 E ed [Presen 18:55 ce] in Urine by Automat ed test strip Mucus NEGATIV NEG complet [Presen 017 E ed ce] in 18:55 Urine sedimen t by Light microsc opy Nitrite NEGATIV NEG complet 017 E ed [Presen 18:55 ce] in Urine by Test strip Urobili 0.2 NEG complet nogen 017 ed [Presen 18:55 ce] in Urine by Test strip Urine test by rapid immunoassa (02-26-2017 18:59) Urine POSITIV NEG complet pregnan 017 E ed cy test 18:59 by rapid immunoa ssa Urinalysis macro (dipstick) panel in Urine (02-26-2017 18:40) Appeara Clear CLEAR complet nce of 017 ed Urine 18:40 Bilirub 1+ NEG Abnorma complet in 017 l ed [Presen 18:40 ce] in Urine by Test strip Erythro NEGATIV NEG complet cytes 017 E ed [Presen 18:40 ce] in Urine Color YELLOW YELLOW complet of 017 ed Urine 18:40 Ketones 80 NEG complet 017 ed [Presen 18:40 ce] in Urine by Automat ed test strip Leukocy NEGATIV NEG complet te 017 E ed esteras 18:40 e [Presen ce] in Urine by Automat ed test strip Nitrite NEGATIV NEG complet 017 E ed [Presen 18:40 ce] in Urine by Test strip Urobili 1.0 NEG complet nogen 017 ed [Presen 18:40 ce] in Urine by Test strip B-HCG SerPl-aCnc (12-11-2016 20:02) Comment: Expected BHCG in apparently healthy, non- individuals: <4.83 mIU/mL Comment: BHCG values between 4.83 and 25 mIU/mL are considered indeterminate for ; recollect in 48 hours and test again. Comment: BHCG values >25 mIU/mL are considered indicative of . Comment: Expected BHCG values in females at defined gestational ages: Comment: 1-10 weeks 60-150,000 mIU/mL Comment: 11-15 weeks 12,000-150,000 mIU/mL Comment: 16-22 weeks 9,000- 60,000 mIU/mL Comment: 23-40 weeks 1,700-100,000 mIU/mL HGC 39820.0 complet Intact+ 017 0 ed B 20:02 mIU/mL SerPl-a Cnc Comp Metab 1998 Pnl SerPl (12-11-2016 20:02) Comment: Abnormal estimated GFR should be followed by more specific studies to confirm end stage chronic renal disease. The equation used for calculation may not be accurate for patients less than 19 years old, greater than 70 years old, patients at extremes Anion 14.1 complet Gap3 017 mmol/L ed SerPl-s 20:02 Cnc BUN/Cre 8.0 7.1-23. complet at 017 5 ed SerPl 20:02 Albumin 1.2 1.0-2.0 complet /Glob 017 g/dL ed SerPl 20:02 Globuli 3.4 complet n Ur 017 gm/dL ed Elph-mC 20:02 nc GFR/BSA 146 >60 complet .pred 017 mL/min/ ed SerPl 20:02 1.73 MDRD-Ar VRat Bilirub 0.7 0.2-1.3 complet 017 mg/dL ed SerPl-m 20:02 Cnc ALP 46 U/L 38-126 complet SerPl-c 017 ed Cnc 20:02 AST 12-11-2 43 U/L 15-46 complet SerPl-c 017 ed Cnc 20:02 ALT 2 90 U/L 13-69 complet SerPl w 017 ed 20:02 P-5'-P- cCnc Albumin 4.20 3.50-5. complet 017 g/dL 00 ed SerPl-m 20:02 Cnc Prot 7.6 6.3-8.2 complet SerPl-m 017 g/dL ed Cnc 20:02 Calcium 9.4 8.4-10. complet 017 mg/dL 2 ed XXX-sCn 20:02 c CO2 27.0 26.0-30 complet SerPl-s 017 mmol/L .0 ed Cnc 20:02 Chlorid 102 98-107 complet e 017 mmol/L ed SerPl-s 20:02 Cnc Potassi 4.1 3.5-5.1 complet um 017 mmol/L ed Bld-sCn 20:02 c Sodium 12-11- 139 137-145 complet Bld-sCn 017 mmol/L ed c 20:02 Creat 2 0.50 0.60-1. complet Bld-mCn 017 mg/dL 30 ed c 20:02 BUN 2 4 mg/dL 7-20 complet Bld-mCn 017 ed c 20:02 Glucose 99 74-98 complet 017 mg/dL ed Bld-mCn 20:02 c CBC W Diff pnl,unspecified Bld (12-11-2016 20:02) nRBC/10 12-11-2 0.0 0.0-0.0 complet 0 WBC 017 /100 ed Bld 20:02 WBC Manual- Rto Imm 12-11-2 0.03 0.00-0. complet Granulo 017 10*3/mm 06 ed cytes # 20:02 3 Bld Basophi 12-11-2 0.01 0.00-0. complet ls # 017 10*3/mm 20 ed Bld 20:02 3 Auto Eosinop 12-11-2 0.04 0.00-0. complet hil # 017 10*3/mm 70 ed Bld 20:02 3 Auto Monocyt 24-2 0.44 0.00-0. complet es # 017 10*3/mm 90 ed Bld 20:02 3 Auto Lymphoc 24-2 2.22 0.60-3. complet ytes # 017 10*3/mm 40 ed Bld 20:02 3 Auto Neutrop 24-2 6.14 2.00-6. complet hils # 017 10*3/mm 90 ed Bld 20:02 3 Auto Imm 24-2 0.3 % 0.0-0.6 complet Granulo 017 ed cytes/l 20:02 euk NFr Bld Basophi 24-2 0.1 % 0.0-2.5 complet ls/leuk 017 ed NFr 20:02 Bld Auto Eosinop 24-2 0.5 % 0.0-7.0 complet hil/steven 017 ed k NFr 20:02 Bld Auto Monocyt 24-2 5.0 % 0.0-12. complet es/leuk 017 0 ed NFr 20:02 Bld Auto Lymphoc 24-2 25.0 % 10.0-50 complet ytes/le 017 .0 ed uk NFr 20:02 Bld Auto Neutrop 24-2 69.1 % 37.0-80 complet hils/le 017 .0 ed uk NFr 20:02 Bld Auto Platele 24-2 221 130-400 complet t # Bld 017 10*3/mm ed Auto 20:02 3 PMV Bld 24-2 9.3 fL 6.0-12. complet Auto 017 0 ed 20:02 RDW RBC 24-2 41.7 fl 37.0-54 complet Auto 017 .0 ed 20:02 RDW RBC 24-2 13.4 % 11.5-14 complet 017 .5 ed Auto-Rt 20:02 o MCHC 24-2 34.5 30.0-37 complet RBC 017 g/dL .0 ed Auto-mC 20:02 nc MCH RBC 24-2 29.9 pg 27.0-31 complet Qn 017 .0 ed Auto 20:02 MCV RBC 24-2 86.6 fL 81.0-99 complet Auto 017 .0 ed 20:02 Hct VFr 06-24-2 38.8 % 37.0-47 complet Bld 017 .0 ed Auto 20:02 Hgb -24-2 13.4 12.0-16 complet Bld-mCn 017 g/dL .0 ed c 20:02 RBC # 24-2 4.48 4.20-5. complet Bld 017 10*6/mm 40 ed Auto 20:02 3 WBC 24-2 8.88 4.80-10 complet nRBC 017 10*3/mm .80 ed cor # 20:02 3 Bld UA Dipstick Pnl Ur (12-11-2016 19:50) Comment: Urine microscopic not indicated. Urobili 12-11-2 1.0 0.2 - complet nogen 017 E.U./dL 1.0 ed Ur Ql 19:50 E.U./dL Strip Nitrite 12-11-2 [id number] Negativ complet Ur Ql 017 09 e ed Strip 19:50 Negativ e SCT Leukocy 12-11-2 [id number] Negativ complet te 017 09 e ed esteras 19:50 Negativ e Ur Ql e SCT Strip.a uto Prot Ur 12-11-2 [id number] Negativ complet Ql 017 09 e ed Strip 19:50 Negativ e SCT Hgb Ur 24-2 [id number] Negativ complet Ql 017 09 e ed Strip.a 19:50 Negativ uto e SCT Bilirub 12-11-2 [id number] Negativ complet Ur Ql 017 09 e ed Strip 19:50 Negativ e SCT Ketones 12-11-2 [id number] Negativ complet Ur Ql 017 09 e ed Strip 19:50 Negativ e SCT Glucose 24-2 [id number] Negativ complet Ur 017 09 e ed Strip-m 19:50 Negativ Cnc e SCT Sp Gr 12-11-2 1.020 1.005-1 complet Ur 017 .030 ed Strip 19:50 pH Ur 12-11-2 6.5 5.0-8.0 complet Strip.a 017 ed uto 19:50 Clarity 24-2 Slightl Clear complet Ur 017 y ed 19:50 Cloudy Color 12-11-2 [id number] Yellow, complet Ur 017 09 Straw ed 19:50 Yellow color SCT URINALYSIS (03-19-2014 15:30) Comment: COMMENTS: RM1 NO PCP\.br\ EPITHEL 1-4 complet IAL 014 /HPF ed CELLS 15:30 SOURCE: *NO complet 014 SOURCE ed 15:30 GIVEN* LEUKOCY Negativ NEGATIV complet TE 014 e E ed ESTERAS 15:30 E NITRITE Negativ NEGATIV complet 014 e E ed 15:30 UROBILI 0.2 0.2 complet NOGEN 014 E.U./DL ed 15:30 PROTEIN Negativ NEGATIV complet 014 e MG/DL E ed 15:30 PH 6.5 5.0-7.0 complet URINE 014 ed 15:30 BLOOD Negativ NEGATIV complet 014 e E ed 15:30 SPECIFI 1.010 1.005-1 complet C 014 .030 ed GRAVITY 15:30 KETONES Negativ NEGATIV complet 014 e MG/DL E ed 15:30 BILIRUB Negativ NEGATIV complet IN 014 e E ed 15:30 GLUCOSE Negativ NEGATIV complet URINE 014 e G/DL E ed 15:30 CLARITY Clear CLEAR complet URINE 014 ed 15:30 COLOR Yellow YELLOW complet 014 ed 15:30 TEST URINE (03-19-2014 15:30) Comment: COMMENTS: RM1 NO PCP\.br\ PREGNAN POSITIV NEGATIV complet CY TEST 014 E E ed URINE 15:30 COMPHREHENSIVE METABOLIC PANEL (03-04-2014 21:10) Comment: COMMENTS: RM 1/NO PCP\.br\ BUN/CRE 11.0 6.0-25. complet AT 014 RATIO 0 ed RATIO 21:10 ALB/MAURO 1.0 0.8-2.0 complet B RATIO 014 RATIO ed 21:10 TOTAL 0.4 0.3-1.2 complet BILIRUB 014 MG/DL ed IN 21:10 ASPARTA 09-15-2 18.0 8.0-33. complet TE 014 U/L 0 ed AMINOTR 21:10 ANSFERA SE ALANINE 19.0 4.0-36. complet 014 U/L 0 ed AMINOTR 21:10 ANSFERA SE ALKALIN 38.0 25.0-10 complet E 014 U/L 0.0 ed PHOSPHA 21:10 TASE ALBUMIN 4.2 3.4-4.8 complet 014 G/DL ed 21:10 TOTAL 7.50 6.40-8. complet PROTEIN 014 G/DL 30 ed 21:10 CALCIUM 9.3 8.5-10. complet 014 MG/DL 5 ed 21:10 GLOMERU 108 >59 complet LAR 014 ML/MIN ed FILTRAT 21:10 ION RATE CREATIN 0.7 0.4-1.2 complet INE 014 MG/DL 0 ed 21:10 UREA 8.0 6.0-20. complet NITROGE 014 MG/DL 0 ed N 21:10 GLUCOSE 106.0 74.0-10 complet 014 MG/DL 6.0 ed 21:10 CARBON 27.0 20.0-30 complet DIOXIDE 014 mEq/L .0 ed 21:10 CHLORID 102.4 98.0-10 complet E 014 MMOL/L 7.0 ed 21:10 POTASSI 4.0 3.4-5.1 complet UM 014 mEq/L ed 21:10 SODIUM 138.0 136.0-1 complet 014 MMOL/L 45.0 ed 21:10 CBC AUTOMATED DIFF (03-04-2014 21:10) Comment: COMMENTS: RM 1/NO PCP\.br\ BASOPHI 03-04- 0.01 10 0.02-0. complet L# 014 3/UL 10 ed 21:10 BASOPHI 03-04-2 0.2 % 0.0-0.5 complet L% 014 ed 21:10 EOSINOP 03-04- 0.11 10 0.04-0. complet HIL# 014 3/UL 40 ed 21:10 EOSINOP 03-04-2 1.8 % 1.0-5.0 complet HIL% 014 ed 21:10 MONOCYT 0.44 10 0.20-0. complet E# 014 3/UL 80 ed 21:10 RDW SD 41.8 FL 35.1-46 complet 014 .3 ed 21:10 RDW CV 13.8 % 11.0-16 complet 014 .0 ed 21:10 MEAN 9.8 FL 6.0-10. complet PLATELE 014 0 ed T 21:10 VOLUME PLATELE 214 10 150-400 complet T COUNT 014 3/UL ed 21:10 MEAN 29.2 PG 27.0-32 complet CELL 014 .0 ed HEMOGLO 21:10 BIN MEAN 83.9 FL 76.0-96 complet CELL 014 .0 ed VOLUME 21:10 HEMATOC 39.1 % 37.0-47 complet RIT 014 .0 ed 21:10 HEMOGLO 13.6 11.5-16 complet BIN 014 G/DL .5 ed 21:10 RED 4.66 10 3.80-5. complet BLOOD 014 6/UL 80 ed CELL 21:10 WHITE 6.0 10 4.0-11. complet BLOOD 014 3/UL 0 ed CELL 21:10 COUNT MEAN 34.8 31.0-35 complet CELL 014 G/DL .0 ed HGB 21:10 CONCENT RATION MONOCYT 7.4 % 3.0-10. complet E% 014 0 ed 21:10 LYMPHOC 1.7 10 1.50-4. complet YTE# 014 3/UL 00 ed 21:10 LYMPHOC 28.3 % 20.0-40 complet YTE% 014 .0 ed 21:10 NEUTROP 3.7 10 2.0-7.5 complet HIL# 014 3/UL ed 21:10 NEUTROP 62.3 % 45.0-70 complet HIL% 014 .0 ed 21:10 URINE CULTURE, ROUTINE (03-04-2014 21:00) URINE Ceftria complet CULT 014 xone S ed SUSC 21:00 URINE Trimeth complet CULT 014 oprim/S ed [facility] 21:00 ulfa S URINE Tobramy complet CULT 014 jim S ed [facility] 21:00 URINE Tetracy complet CULT 014 silver S ed [facility] 21:00 URINE Piperac complet CULT 014 illin R ed S[facility] 21:00 URINE Greater complet CULT R1 014 than ed 21:00 100,000 colony forming units per mL URINE Cefepim complet CULT 014 e S ed [facility] 21:00 URINE Ampicil complet CULT 014 james R ed [facility] 21:00 URINE Amoxici complet CULT 014 llin/Cl ed [facility] 21:00 avulani c Acid I URINE Antibio complet CULT 014 tic ed [facility] 21:00 RSLT#1 RSLT#2 RSLT#3 RSLT#4 URINE Nitrofu complet CULT 014 rantoin ed [facility] 21:00 S UR CULT Final complet RESULT 014 report ed 21:00 URINE Lab complet CULT 014 Directo ed S[facility] 21:00 r: Pako morris PhD, Phone: [phone] URINE 6370 complet CULT 014 Arriaga ed SUSC 21:00 [place], [place] [id number] URINE Perform complet CULT 014 ed at: ed S[facility]C 21:00 CB - [facility] [place] URINE P = complet CULT 014 Positiv ed S[facility]C 21:00 e; N = Negativ e URINE S complet CULT 014 = ed [facility] 21:00 Suscept ible; I = Interme diate; R = Resista nt URINE system. complet CULT R1 014 ed 21:00 URINE Escheri complet CULT R1 014 annette ed 21:00 coli, identif ied by an automat ed biochem ical URINE MICS complet CULT 014 are ed S[facility]C 21:00 express ed in microgr ams per mL URINE Levoflo complet CULT 014 xacin S ed [facility] 21:00 URINE Imipene complet CULT 014 m S ed [facility] 21:00 URINE Gentami complet CULT 014 jim S ed [facility] 21:00 URINE Ertapen complet CULT 014 em S ed [facility] 21:00 URINE Ciprofl complet CULT 014 oxacin ed [facility] 21:00 S URINE Cephalo complet CULT 014 thin S ed [facility] 21:00 URINE Cefurox complet CULT 014 radhika S ed [facility] 21:00 Procedures Procedure DOS Code Location Performer Comment LOW 741 [facility] AMEZQUITA CERVICAL 5 [facility] MED[facility] MEDICAL SECTION [facility] 734 [facility] AMEZQUITA INDUCTION 5 [facility] Encounters Encounter Start End Date Code Location Performer Type Date [facility] - 7 7 [facility] [place] [place] - 7 [facility] - [address] [facility] & [facility] 7 7 [facility] 7 [facility] I[facility] & [facility] 7 7 [facility] & - 7 7 [facility] & [facility] 7 7 [facility] - 6 6 [facility] - [facility] 6 [facility] & [facility] 6 6 [facility] & - 6 6 [facility] & - 6 6 [facility] & - 6 6 [facility] & [facility] 6 6 [facility] & - 6 6 [facility] - 6 6 [facility] - 6 6 [facility] - 6 [facility] - 6 [facility] - 6 [facility] - 6 [facility] - 6 6 [facility] - 6 6 [facility] - 6 6 [facility] - 6 [facility] 6 6 [facility] - 5 5 [facility] 5 5 [facility] & - 5 5 [facility] AL[facility] - 5 5 [facility]
--- OUTSIDE RECORDS SUMMARY | 2017-04-24 19:40 | External Medical Summary Rpt | CCD ---
Author Author , TONEY ZIEGLER Address Unknown Phone [email or web address] Care Team Providers Care Home Service Consultant Name Role Phone [facility] Unavailable Unavailable MEDICAL [facility], [facility] Unavailable Unavailable [place], [facility] Unavailable Unavailable HOSPITAL, [facility] Unavailable [facility]available [facility] Unavailable Unavailable ANESTHESIA [facility], [facility] ANESTHESIA [facility] EMERGENCY MEDICINE Unavailable Unavailable PHYSICIAN, EMERGENCY MEDICINE PHYSICIAN [facility] Un[facility] Unavailable [facility]IN[facility], [facility], [facility], [facility] Unavailable Unavailable [facility], [facility], Unavailable [facility]available [facility]- Unavailable Unavailable ANTONELL[facility], [facility], Unavailable Unavailable PLL[facility], [facility] Unavailable Unavailable EMERGENCY PHYS, [facility] EMERGENCY PHYS [facility] Unavailable Unavailable HOSPITALS, [facility], Unavailable Unavailable [facility], [facility]available Unavailable PLLC, [facility] Unavailable [place], [facility] Continuity of Care Document - 03-04-2014 through 2016 Problems Code Diagnosis DOS Provider Status [id number] PRE-EXISTIN 03-07-2017 [facility] DIABETES [facility] MELLITUS PREG 2ND TRI [id number] MATERNAL 03-07-2017 [facility] SERV TRANSVERSE [facility] & OBLIQUE LIE NA/UNS [id number] MATERNAL 03-07-2017 [facility] UNS SERV TYPE SCAR [facility] PREV DEL Z36 ENCOUNTER 03-07-2017 [facility] SCREENING OF MOTHER Z3A20 20 WEEKS 03-07-2017 [facility] SERV OF [facility]OUNDATION [id number] OTHER SPEC 02-26-2017 [facility] RELATED [facility] COND 2ND TRIMESTER R1030 LOWER 02-26-2017 [facility]BDOMINAL [facility], PAIN PLL[facility] UNSPECIFIED Z3A19 19 WEEKS 02-26-2017 [facility] GE[facility]ATION [facility], OF [facility] [id number] DECREASED 02-22-2017 [facility] MOVEMENTS [facility] THIRD TRIMESTER NA/UNS Z3A18 18 WEEKS 02-22-2017 [facility] OF [facility] Z3A17 17 WEEKS 02-14-2017 [facility] OF [facility] Z3A15 15 WEEKS 01-31-2017 [facility] OF [facility] K55870 SUPERVISION 01-26-2017 [facility] RISK PREG HOSPITALS UNS TRIMESTER O219 VOMITING OF 01-06-2017 [facility] UNSPECIFIED [facility] [id number] PRE-EXISTIN 01-06-2017 [facility] G TY 2 SERV DIABETES FOUND[facility] MELLITUS PREG 1ST TRI Z3A11 11 WEEKS 01-06-2017 [facility] OF [facility] Z8639 PERSONAL HX 01-06-2017 [facility] ENDOCRN [facility] NUTRITIONL& METAB DISEASE E119 TYPE 2 12-31-2016 [facility] MELLITUS HOSPITAL WITHOUT COMPLICATIO NS O7589 OTHER 12-31-2016 [facility] COMPLICATIO HOSPITAL NS LABOR & DELIVERY R102 PELVIC AND 12-31-2016 [facility] O021 MISSED 12-14-2016 [facility] O200 THREATENED 12-14-2016 [facility] Z3A08 8 WEEKS 12-14-2016 [facility] GESTATION HEALTH OF MEDICAL GROUP O2691 12-11-2016 [facility] RELATED [facility]ALTH CONDITIONS [place] UNS 1ST TRIMESTER O9989 OTH DZ & 12-11-2016 [facility] COMP N EMERGENCY PREG PHYS CHILDBIRTH PUERPERIUM R109 UNSPECIFIED 12-11-2016 [facility] ABDOMINAL N EMERGENCY PAIN PHYS Z3A01 LESS THAN 8 12-11-2016 [facility] WEEKS N EMERGENCY GESTATION PHYS OF P94805 OTHER LONG 12-11-2016 [facility] TERM [facility] CURRENT [place] [facility]UG THERAPY O4691 ANTEPARTUM 12-07-2016 [facility] OF UNS FIRST CURT TRIMESTER Z3480 ENC 12-07-2016 [facility] SUPERVISION HEALTH OF OT NORMAL [place] PREG UNS TRIMESTER I98205 OTHER SPEC 12-04-2016 [facility] RELATED COND UNS TRIMESTER R1013 EPIGASTRIC 12-04-2016 EMERGENCY PAIN MEDICINE PHYSICIAN N921 EXCESS & 11-23-2016 [facility] FREQUENT HE[facility] OF MENSTRUATIO [place] N W/IRREGULAR CYCLE B48949 MATERNAL 11-23-2016 [facility]ARE [facility] TRANS SCAR [place] PREV DEL Z139 ENCOUNTER 11-23-2016 LAB [facility] FOR [facility] SCREENING HOLDINGS UNSPECIFIED Z3490 ENC 11-23-2016 LAB [facility] SUPERVISION SH[facility] NORMAL HOLDINGS PREG UNS UNS TRIMESTER L270 GEN SKIN 11-09-2016 [facility] D/T RX & HOSPITAL MED TAKEN INTERNALLY [id number] ADVERSE EFF 11-09-2016 [facility] ANTI-INFECT HOSPITAL /PARASIT INIT ENC [id number] ADVERS EFF 11-09-2016 [facility] OTH RX MEDS N EMERGENCY BIO PHYS SUBSTANCES INIT ENC E039 HYPOTHYROID 11-08-2016 [facility] & ISM [facility] UNSPECIFIED E6609 OTHER 11-08-2016 [facility] OBESITY DUE MEDICAL TO EXCESS CLINIC, [facility] CALORIES N390 URINARY 11-08-2016 [facility] TRACT MEDICAL INFECTION CLINIC, [facility] SITE NOT SPECIFIED R300 DYSURIA 11-08-2016 [facility] R5383 OTHER 11-08-2016 [facility] & FATIGUE [facility] Z1321 ENCOUNTER 11-08-2016 [facility] & FOR [facility] SCREENING FOR NUTRITIONAL DISORDER Z87596 ENCOUNTER 11-08-2016 [facility] & FOR [facility] SCREENING FOR LIPOID DISORDERS Z6832 BODY MASS 11-08-2016 [facility] INDEX BMI MEDICAL 32.0-32.9 CLINIC, [facility] ADULT M419 SCOLIOSIS 07-24-2016 [facility] CHERRY, [facility] M542 CERVICALGIA 07-24-2016 [facility] CHERRY, [facility] M545 LOW BACK 07-24-2016 [facility] Gilmore PAIN DILIP, [facility] Z113 ENCOUNTER 07-22-2016 [facility] SCREEN MEDICAL INFECTIONS CLINIC, [facility] SEXL MODE TRANSMISSN Z6831 BODY MASS 07-22-2016 [facility] INDEX BMI MEDICAL 31.0-31.9 CLINIC, [facility] ADULT J029 ACUTE 07-13-2016 [facility] & PHARYNGITIS [facility] UNSPECIFIED N3001 ACUTE 07-13-2016 [facility] & CYSTITIS [facility] WITH HEMATURIA R1110 VOMITING 06-06-2016 [facility] UNSPECIFIED N EMERGENCY PHYS M791 MYALGIA 04-23-2016 [facility] R079 CHEST PAIN 04-23-2016 [facility] CH[facility] K529 NONINFECTIV 03-02-2016 [facility] & E [facility] GASTROENTER ITIS & COLITIS UNS V84819 PAIN IN 02-09-2016 [facility] LEFT MEDICAL SHOULDER [...] Y DISEASE [facility] OF CERVIX UTERI G26885 PAIN IN 01-06-2016 [facility] [place] LEFT KNEE DILIP I4601WN CONTUSION 01-06-2016 [facility] & OF LEFT [facility] KNEE INITIAL ENCOUNTER M64106R STRAIN 12-31-2015 EMERGENC[facility] MUSCLE & MEDICINE TENDON BACK PHYSICIAN WALL THORAX INIT ENC Z09299I SPRAIN 12-31-2015 EMERGENCY CALCANEOFIB MEDICINE ULAR LIG LT PHYSICIAN ANKLE INITIAL ENC R200 ANESTHESIA 12-23-2015 EMERGENCY OF SKIN MEDICINE PHYSICIAN Z760 ENCOUNTER 12-11-2015 [facility] FOR ISSUE MEDICAL OF REPEAT CLINIC, [facility] PRESCRIPTIO N W68456 OTHER 11-14-2015 [facility] & MUCOPURULEN [facility] T CONJUNCTIVI TIS BILATERAL H1033 UNSPECIFIED 11-14-2015 EMERGENCY ACUTE MEDICINE CONJUNCTIVI PHYSICIAN TIS BILATERAL J069 ACUTE UPPER 11-10-2015 [facility] RESPIRATORY INFECTION UNSPECIFIED E22977 UNSPECIFIED 11-10-2015 [facility] & ASTHMA [facility] UNCOMPLICAT ED R05 COUGH 11-10-2015 [facility] R509 FEVER 11-10-2015 [facility] & UNSPECIFIED [facility] Z794 DOCTOR OF NURSE ANESTHESIA PRACTICE 11-10-2015 [facility] & CURRENT USE [facility] OF INSULIN E860 DEHYDRATION 10-29-2015 EMERGENCY MEDICINE PHYSICIAN R112 NAUSEA WITH 10-29-2015 [facility] & VOMITING [facility] UNSPECIFIED R197 DIARRHEA 10-29-2015 [facility] & UNSPECIFIED [facility] N3000 ACUTE 10-05-2015 [facility] & CYSTITIS [facility] WITHOUT HEMATURIA R5382 CHRONIC 09-19-2015 [facility] FATIGUE MEDICAL UNSPECIFIED CLINIC, [facility] N42303O INSECT BITE 09-12-2015 EMERGENCY MEDICINE NONVENOMOUS PHYSICIAN LT FOREARM INITIAL ENC E282 POLYCYSTIC 08-09-2015 [facility] & OVARIAN [facility] SYNDROME J449 CHRONIC 08-09-2015 [facility] & OBSTRUCTIVE [facility] PULMONARY DISEASE UNS C94132 PERSONAL 08-09-2015 [facility] & HISTORY OF [facility] URINARY TRACT INFECTIONS E669 OBESITY 07-23-2015 [facility] UNSPECIFIED PRIMARY CARE- [facility] N946 DYSMENORRHE 07-23-2015 [facility] A PRIMARY UNSPECIFIED CARE- [facility] M2550 PAIN IN 04-11-2015 [facility] UNSPECIFIED MEDICAL JOINT CLINIC, [facility] Z309 ENCOUNTER 04-11-2015 [facility] FOR MEDICAL CONTRACEPTI CLINIC, [facility] VE MANAGEMENT UNS 82297 OBESITY, 03-07-2015 [facility] UNSPECIFIED MEDICAL CLINIC, [facility] 6253 DYSMENORRHE 03-07-2015 [facility] A MEDICAL CLINIC, [facility] 32415 CHRONIC 03-07-2015 [facility] FATIGUE MEDICAL SYNDROME CLINIC, [facility] 5990 URINARY 02-09-2015 [facility] & TRACT [facility] INFECTION SITE NOT SPECIFIED 50103 HEMATURIA 02-09-2015 [facility] & UNSPECIFIED [facility] 5950 ACUTE 01-15-2015 [facility] & CYSTITIS [facility] 95206 ABDOMINAL 12-10-2014 [facility] S. PAIN OTHER DILIP SPECIFIED SITE 7831 ABNORMAL 11-28-2014 [facility] WEIGHT GAIN MEDICAL CLINIC, [facility] V221 SUPERVISION 11-10-2014 [facility] OF OTHER HEALTH OF [facility] [place] 14569 ABN FETL 11-09-2014 [facility] HRT H RATE/RHYTHM ANESTHESIA DELIV W/WO PSC ANTPRTM COND 10738 PRIMARY 11-09-2014 [facility] UTERINE H INERTIA ANESTHESIA WITH PSC DELIVERY 5768 OTHER 11-08-2014 [facility] SPECIFIED REGIONAL DISORDERS MEDICAL OF BILIARY CENTE TRACT 37611 LIVER 11-08-2014 [facility] BILIARY REGIONAL TRACT D/O MEDICAL PREG DEL CENTE W/WO ANTPRTM 98601 OTH CURRENT 11-08-2014 [facility] MATERNAL REGIONAL CCE MEDICAL W/DELIVERY CENTE 06511 FETOPELVIC 11-08-2014 [facility] DISPROPORTI REGIONAL ON, MEDICAL DELIVERED CENTE 88810 OTHER AND 11-08-2014 [facility] UNSPECIFIED REGIONAL UTERINE MEDICAL INERTIA CENTE W/DELIVERY V0251 CARRIER/ALISSA 11-08-2014 [facility] B CENTE STREPTOCOCC [place] V270 OUTCOME OF 11-08-2014 [facility] DELIVERY REGIONAL SINGLE MEDICAL LIVEBORN CENTE 25942 EXCESS 10-10-2014 [facility] [place] AFFECT MGMT MOTH ANTPRTM Allergies, Adverse Reactions, [...] ia de te s n re d WI 68 09 10 12 2 00 WA [...] 60 8- 3- 00 07 MA ve OK 17 20 20 0 42 RT N 80 17 17 09 HC 1 48 PH L AR ER MA CY 50 0 #4 MG 93 TA BL ET FR 99 09 10 10 25 00 MT Ac EE 07 -1 -1 0. 00 [...] GL 00 09 10 30 30 00 MT Ac YB 09 -1 -1 .0 00 [...] 60 1- 5- 00 07 MA ve OK 17 20 20 0 42 RT N 80 17 17 09 HC 1 48 PH L AR ER MA CY 50 0 #4 MG 93 TA BL ET WI 68 08 09 12 2 00 WA Ac OM 38 -2 -1 .0 00 L- ti ET 20 1- 5- 00 07 MA ve LOPEZ 04 20 20 42 RT ZI 00 17 17 09 NE 1 38 PH AR 12 MA .5 CY MG #4 93 TA BL ET WI 68 08 09 12 2 00 WA [...] MA NC CY ET S #4 93 WI 68 07 08 12 2 00 WA [...] 60 5- 8- 00 07 MA ve OK 17 20 20 0 42 RT N 80 17 17 09 HC 1 48 PH L AR ER MA CY 50 0 #4 MG 93 TA BL ET WI 65 06 07 20 5 00 RI [...] OR 60 9- 4- 00 01 ve OK 14 20 20 64 AI N 20 [...] NC CY ET S #3 94 3 WI 00 06 07 30 30 00 RI [...] 05 06 20 10 00 RI Ac WI 14 -2 -1 .0 00 TE ti [...] OR 60 2- 6- 00 01 ve OK 14 20 20 64 AI N 20 17 17 93 D HC 1 66 PH L AR ER MA CY 50 0 #3 MG 94 3 TA BL ET ME 62 03 05 90 30 00 RI Ac TF 75 -3 -0 .0 00 TE ti OR 60 1- 5- 00 01 ve OK 14 20 20 64 AI N 20 17 17 93 D HC 1 66 PH L AR ER MA CY 50 0 #3 MG 94 3 TA BL ET ME 00 03 04 30 30 00 KE Ac TF 09 -1 -0 .0 00 NT ti OR 37 5- 7- 00 01 UC ve OK 26 20 20 04 [place] N 71 [...] 50 7- 7- 00 00 LL ve OK 26 20 20 33 N 00 17 [...] 82 -2 -1 00 00 TE ti OK 23 4- 7- 0 01 ve CO [...] 0 4 MG CA PS UL E WI 10 12 01 12 3 00 WA [...] ed Anaerob 13:55 e+Aerob e Cult Bacteri [id number] complet a XXX 017 09 ed Anaerob [...] ed Anaerob 13:55 e+Aerob e Cult Bacteri [id number] complet a XXX 017 09 ed Anaerob 13:55 negativ e+Aerob e e Cult (qualif ier value) SCT CTNEG NEGATIV E for Chlamyd ia trachom atis plasmid by nucleic acid amplifi cation. L Bacteria Ur Cult (04-01-2017 13:55) Bacteri [id number] complet a XXX 017 9 ed Anaerob 13:55 normal e+Aerob cliff e Cult (findin g) SCT UMXF Mixed urogeni rachel or skin cliff present . Suggest appropr iate recolle ction with timely deliver y to the laborat or, if clinica lly indicat ed. L Bacteri [id number] complet a XXX 017 10,000- ed Anaerob [...] mIU/mL Comment: 23-40 weeks 1,700-100,000 mIU/mL HGC 39798.0 complet Intact+ 017 0 ed B 20:02 [...] Ur Ql 19:50 E.U./dL Strip Nitrite 12-11-2 [id number] Negativ complet Ur Ql 017 09 e ed Strip 19:50 Negativ e SCT Leukocy 12-11-2 [id number] Negativ complet te 017 09 e ed esteras 19:50 Negativ e Ur Ql e SCT Strip.a uto Prot Ur 12-11-2 [id number] Negativ complet Ql 017 09 e ed Strip 19:50 Negativ e SCT Hgb Ur 24-2 [id number] Negativ complet Ql 017 09 e ed Strip.a 19:50 Negativ uto e SCT Bilirub 12-11-2 [id number] Negativ complet Ur Ql 017 09 e ed Strip 19:50 Negativ e SCT Ketones 12-11-2 [id number] Negativ complet Ur Ql 017 09 e ed Strip 19:50 Negativ e SCT Glucose 24-2 [id number] Negativ complet Ur 017 09 e ed Strip-m 19:50 Negativ Cnc e SCT Sp Gr 12-11-2 1.020 1.005-1 complet Ur 017 .030 ed Strip 19:50 pH Ur 12-11-2 6.5 5.0-8.0 complet Strip.a 017 ed uto 19:50 Clarity 24-2 Slightl Clear complet Ur 017 y ed 19:50 Cloudy Color 12-11-2 [id number] Yellow, complet Ur 017 09 Straw ed [...] [facility]US[facility] 21:00 r: Pako morris PhD, Phone: [phone] URINE 6370 complet CULT 014 Arriaga ed SUSC 21:00 [place], [place] [id number] URINE Perform complet CULT 014 ed at: ed [facility] 21:00 CB - [facility] URINE P = complet CULT 014 Positiv [...] LOW 741 ALIRIO AMEZQUITA CERVICAL 5 [facility] MED[facility] SECTION [facility] 734 ALIRIO AMEZQUITA INDUCTION 5 [facility] Encounters Encounter Start End Date Code Location Performer Type Date [facility] - 7 7 [facility] - 7 [facility] - 7 7 [facility] & [facility] 7 7 [facility] 7 [facility] & - 7 7 [facility] & [facility] 7 7 [facility] & - 7 7 [facility] - 6 6 [facility] & - 6 6 [facility] & [facility] 6 6 [facility] & - 6 6 [facility] & - 6 6 [facility] & - 6 6 [facility] - [facility] - [facility] - [facility] - 6 6 [facility] - [facility] - [facility] - [facility] - 6 6 [facility] - 6 6 [facility] & [facility] 6 6 [facility] - 6 6 [facility] & [facility] 6 6 [facility] & [facility] 6 6 [facility] & - 5 5 [facility] & - 5 5 [facility] & [facility] 5 5 [facility] AL[facility] - 5 5 [facility]
--- OUTSIDE RECORDS SUMMARY | 2017-04-24 19:43 | External Medical Summary Rpt | CCD ---
Author Author , TONEY ZIEGLER Address Unknown Phone [email or web address] Care Team Providers Care Interior Assemblies Developer Prover Name Role Phone [facility] Unavailable Unavailable MED[facility], [facility] Unavailable Unavailable [place], [facility] Unavailable Unavailable [facility]PITAL, [facility] Unavailable Unavailable [facility], [facility] Unavailable Unavailable ANESTHESIA [facility], [facility] ANESTHESIA [facility] EMERGENCY MEDICINE Unavailable Unavailable PHYSICIAN, EMERGENCY MEDICINE PHYSICIAN [facility] Un[facility] Unavailable [facility], [facility], [facility] Unavailable Unavailable [facility], [facility], Unavailable Unavailable [facility]- [facility]available Unavailable [place], [facility] Un[facility]available [facility], [facility] Unavailable Un[facility], [facility] Unavailable [facility]available HOSPITALS, [facility] S[facility]MYA CHERRY, Unavailable Unavailable S[facility] CHERRY, Unavailable Unavailable CAROLINE, [facility], [facility] Unavailable [place], [facility] Continuity of Care Document - 10-10-2014 through 2016 Problems Code Diagnosis DOS Provider Status [id number] PRE-EXISTIN 03-07-2017 [place] [facility] MELLITUS PREG 2ND TRI [id number] MATERNAL 03-07-2017 [place] [facility] TRANSVERSE [facility] & OBLIQUE LIE NA/UNS [id number] MATERNAL 03-07-2017 [place] [facility] SERV TYPE SCAR [facility] PREV DEL Z36 ENCOUNTER 03-07-2017 [place] [facility] SCREENING OF MOTHER Z3A20 20 WEEKS 03-07-2017 [place] [facility] SERV OF [facility] O17077 OTHER SPEC 02-26-2017 [facility] RELATED [facility] COND 2ND TRIMESTER R1030 LOWER 02-26-2017 [facility]AL [facility] PAIN [facility] UNSPECIFIED Z3A19 19 WEEKS 02-26-2017 [facility], OF [facility] [id number] DECREASED 02-22-2017 [facility] MOVEMENTS [facility] THIRD TRIMESTER NA/UNS Z3A18 18 WEEKS 02-22-2017 [place] [facility] OF [facility] Z3A17 17 WEEKS 02-14-2017 [place] [facility] OF [facility] Z3A15 15 WEEKS 01-31-2017 [place] [facility] OF [facility] Z77354 SUPERVISION 01-26-2017 [facility]IS[facility]REG HOSPITALS UNS TRIMESTER O219 VOMITING OF 01-06-2017 [facility] UNSPECIFIED [facility] I43496 PRE-EXISTIN 01-06-2017 [place] [facility]ES [facility] MELLITUS PREG 1ST TRI Z3A11 11 WEEKS 01-06-2017 [place] [facility] OF [facility] Z8639 PERSONAL HX 01-06-2017 [place] [facility] ENDOCRN [facility] NUTRITIONL& METAB DISEASE E119 TYPE 2 12-31-2016 [place] DIABETES [facility] MELLITUS HOSPITAL WITHOUT COMPLICATIO NS O7589 OTHER 12-31-2016 [facility] COMPLICATIO HOSPITAL NS LABOR & DELIVERY R102 PELVIC AND 12-31-2016 [place] PERINEAL [facility] PAIN HOSPITAL O021 MISSED 12-14-2016 [facility] O200 THREATENED 12-14-2016 [facility] Z3A08 8 WEEKS 12-14-2016 [facility] GESTATION HEALTH OF MEDICAL GROUP O2691 12-11-2016 [facility] RELATED HEALTH CONDITIONS [place] UNS 1ST TRIMESTER O9989 OTH DZ & 12-11-2016 [facility] COND COMP N EMERGENCY PREG PHYS [facility]ILDBIRTH PUERPERIUM R109 UNSPECIFIED 12-11-2016 [facility] ABDOMINAL N EMERGENCY PAIN PHYS Z3A01 LESS THAN 8 12-11-2016 [facility] WEEKS N EMERGENCY GESTATION PHYS OF X06589 OTHER LONG 12-11-[address] SP[facility] TERM HEALTH CURRENT [place] DRUG THERAPY O4691 ANTEPARTUM 12-07-2016 [facility] HEMORRHAGE HEALTH OF UNS FIRST CURT TRIMESTER Z3480 ENC 12-07-2016 [facility] SUPERVISION HEALTH OF OT NORMAL [place] PREG UNS TRIMESTER I13748 OTHER SPEC 12-04-2016 [facility] RELATED COND UNS TRIMESTER R1013 EPIGASTRIC 12-04-2016 EMERGENCY PAIN MEDICINE PHYSICIAN N921 EXCESS & 11-23-2016 [facility] FREQUENT HEALTH OF MENSTRUATIO [place] N W/IRREGULAR CYCLE T20825 MATERNAL 11-23-2016 [facility]ARE [facility] PREV DEL Z139 ENCOUNTER 11-23-2016 LAB YONG FOR [facility] SCREENING HOLDINGS UNSPECIFIED Z3490 ENC 11-23-2016 LAB YONG SUPERVISION SH[facility] NORMAL HOLDINGS PREG UNS UNS TRIMESTER L270 GEN SKIN 11-09-2016 [place] ERUPTION [facility] D/T RX & HOSPITAL MED TAKEN INTERNALLY [id number] ADVERSE EFF 11-09-2016 [place] [facility]YS COMM[facility]ITY ANTI-INFECT HOSPITAL /PARASIT INIT ENC [id number] ADVERS EFF 11-09-2016 [facility] OTH RX MEDS N EMERGENCY BIO PHYS SUBSTANCES INIT ENC E039 HYPOTHYROID 11-08-2016 [facility] ISM [facility] UNSPECIFIED E6609 OTHER 11-08-2016 [facility] OBESITY DUE MEDICAL TO EXCESS CLINIC, [facility] CALORIES N390 URINARY 11-08-2016 [facility] TRACT MEDICAL INFECTION CLINIC, [facility] SITE NOT SPECIFIED R300 DYSURIA 11-08-2016 [facility], [facility] R5383 OTHER 11-08-2016 [facility] & FATIGUE [facility] Z1321 ENCOUNTER 11-08-2016 [facility] & FOR [facility] SCREENING FOR NUTRITIONAL DISORDER S60853 ENCOUNTER 11-08-2016 [facility] & FOR [facility] SCREENING FOR LIPOID DISORDERS Z6832 BODY MASS 11-08-2016 [facility] INDEX BMI MEDICAL 32.0-32.9 CLINIC, [facility] ADULT M419 SCOLIOSIS 07-24-2016 [facility] CHERRY, [facility] M542 CERVICALGIA 07-24-2016 SOUMAY CHERRY, [facility] M545 LOW BACK 07-24-2016 SOUMYA [place]more PAIN DILIP, [facility] Z113 ENCOUNTER 07-22-2016 [facility] SCREEN MEDICAL INFECTIONS CLINIC, [facility] SEXL MODE TRANSMISSN Z6831 BODY MASS 07-22-2016 [facility] INDEX BMI MEDICAL 31.0-31.9 CLINIC, [facility] ADULT J029 ACUTE 07-13-2016 [facility] & PHARYNGITIS [facility] UNSPECIFIED N3001 ACUTE 07-13-2016 [facility] CYSTITIS [facility] WITH HEMATURIA R1110 VOMITING 06-06-2016 [facility] UNSPECIFIED N EMERGENCY PHYS M791 MYALGIA 04-23-2016 [facility] R079 CHEST PAIN 04-23-2016 S[facility] CHERRY K529 NONINFECTIV 03-02-2016 [facility] E [facility] GASTROENTER ITIS & COLITIS UNS O35137 PAIN IN 02-09-2016 [facility] LEFT MEDICAL SHOULDER [...] Y DISEASE [facility] OF CERVIX UTERI B01766 PAIN IN 01-06-2016 [facility] AlfonsoIfeoma LEFT KNEE DILIP U7324ET CONTUSION 01-06-2016 [facility] & OF LEFT [facility] KNEE INITIAL ENCOUNTER Q62958C STRAIN 12-31-2015 EMERGENCY MUSCLE & MEDICINE TENDON BACK PHYSICIAN WALL THORAX INIT ENC Q37545Y SPRAIN 12-31-2015 EMERGENCY CALCANEOFIB MEDICINE ULAR LIG LT PHYSICIAN ANKLE INITIAL ENC R200 ANESTHESIA 12-23-2015 EMERGENCY OF SKIN MEDICINE PHYSICIAN Z760 ENCOUNTER 12-11-2015 [facility] FOR ISSUE MEDICAL OF REPEAT CLINIC, [facility] PRESCRIPTIO N Q47371 OTHER 11-14-2015 [facility] & MUCOPURULEN [facility] T CONJUNCTIVI TIS BILATERAL H1033 UNSPECIFIED 11-14-2015 EMERGENCY ACUTE MEDICINE CONJUNCTIVI PHYSICIAN TIS BILATERAL J069 ACUTE UPPER 11-10-2015 [facility] RESPIRATORY INFECTION UNSPECIFIED H00881 UNSPECIFIED 11-10-2015 [facility] & ASTHMA [facility] UNCOMPLICAT ED R05 COUGH 11-10-2015 [facility] R509 FEVER 11-10-2015 [facility] & UNSPECIFIED [facility] Z794 SNF 11-10-2015 [facility] & CURRENT USE [facility] OF INSULIN E860 DEHYDRATION 10-29-2015 EMERGENCY MEDICINE PHYSICIAN R112 NAUSEA WITH 10-29-2015 [facility] & VOMITING [facility] UNSPECIFIED R197 DIARRHEA 10-29-2015 [facility] & UNSPECIFIED [facility] N3000 ACUTE 10-05-2015 [facility] & CYSTITIS [facility] WITHOUT HEMATURIA R5382 CHRONIC 09-19-2015 [facility] FATIGUE MEDICAL UNSPECIFIED CLINIC, P[facility] C72938V INSECT BITE 09-12-2015 EMERGENCY MEDICINE NONVENOMOUS PHYSICIAN LT FOREARM INITIAL ENC E282 POLYCYSTIC 08-09-2015 [facility] & OVARIAN [facility] SYNDROME J449 CHRONIC 08-09-2015 [facility] & OBSTRUCTIVE [facility] PULMONARY DISEASE UNS X22993 PERSONAL 08-09-2015 [facility] & HISTORY OF [facility] URINARY TRACT INFECTIONS E669 OBESITY 07-23-2015 [facility] UNSPECIFIED PRIMARY CARE- ANT[place]LLA N946 DYSMENORRHE 07-23-2015 [facility] A PRIMARY UNSPECIFIED CARE- ANTONELLA M2550 PAIN IN 04-11-2015 [facility] UNSPECIFIED MEDICAL JOINT CLINIC, [facility] Z309 ENCOUNTER 04-11-2015 [facility] FOR MEDICAL CONTRACEPTI CLINIC, [facility] VE MANAGEMENT UNS 84930 OBESITY, 03-07-2015 [facility] UNSPECIFIED MEDICAL CLINIC, [facility] 6253 DYSMENORRHE 03-07-2015 [facility] A MEDICAL CLINIC, [facility] 34442 CHRONIC 03-07-2015 [facility] FATIGUE MEDICAL SYNDROME CLINIC, [facility] 5990 URINARY 02-09-2015 [facility] & TRACT [facility] INFECTION SITE NOT SPECIFIED 15752 HEMATURIA 02-09-2015 [facility] & UNSPECIFIED [facility] 5950 ACUTE 01-15-2015 [facility] & CYSTITIS [facility] 78275 ABDOMINAL 12-10-2014 SOUMYA S. PAIN OTHER DILIP SPECIFIED SITE 7831 ABNORMAL 11-28-2014 [facility] WEIGHT GAIN MEDICAL CLINIC, [facility] V221 SUPERVISION 11-10-2014 WOMEN'S OF OTHER HEALTH OF NORMAL [place] 19436 ABN FETL 11-09-2014 [place] HRT H RATE/RHYTHM ANESTHESIA DELIV W/WO PSC ANTPRTM COND 42935 PRIMARY 11-09-2014 [place] UTERINE H INERTIA ANESTHESIA WITH P[facility] DELIVERY 5768 OTHER 11-08-2014 [facility] SPECIFIED REGIONAL DISORDERS MEDICAL OF BILIARY CENTE TRACT 91339 LIVER 11-08-2014 [facility] BILIARY REGIONAL TRACT D/O MEDICAL PREG DEL CENTE W/WO ANTPRTM 65941 OTH CURRENT 11-08-2014 [facility] MATERNAL REGIONAL CCE MEDICAL W/DELIVERY CENTE 30848 FETOPELVIC 11-08-2014 [facility] DISPROPORTI REGIONAL ON, MEDICAL DELIVERED CENTE 16329 OTHER AND 11-08-2014 [facility] UNSPECIFIED REGIONAL UTERINE MEDICAL INERTIA CENTE W/DELIVERY V0251 CARRIER/ALISSA 11-08-2014 [facility] PECTED REGIONAL [facility] B CENTE STREPTOCOCC [place] V270 OUTCOME OF 11-08-2014 [facility] DELIVERY REGIONAL SINGLE MEDICAL LIVEBORN CENTE 13624 EXCESS 10-10-2014 [facility] [place] [place] AFFECT MGMT MOTH ANTPRTM Medications Na ND Rx Da Fi Fi Am Da Di Ph RX Ph St me C No te ll ll ou ys ag ar # ys at rm s nt no ma ic us Or Da si cy ia de te s n re d GL 00 09 10 30 30 00 GA Ac YB 09 -1 -1 .0 00 L- ti UR 38 8- 3- 00 07 MA ve ID 34 20 20 43 RT E 30 17 17 01 2. 1 50 PH 5 AR MG MA CY TA BL #4 ET 93 OR 68 09 10 12 2 00 WA Ac OM 38 -1 -1 .0 00 L- ti ET 20 8- 3- 00 07 MA ve LOPEZ 04 20 20 42 RT ZI 00 17 17 09 NE 1 38 PH AR 12 MA .5 CY MG #4 93 TA BL ET ME 53 09 10 12 30 00 GA Ac TF 74 -1 -1 0. 00 L- ti OR 60 8- 3- 00 07 MA ve NE 17 20 20 0 42 RT N 80 17 17 09 HC 1 48 PH L AR ER MA CY 50 0 #4 MG 93 TA BL ET FR 99 09 10 10 25 00 GA Ac EE 07 -1 -1 0. 00 L- ti ST 30 8- 3- 00 08 MA ve YL 70 20 20 0 84 RT E 82 17 17 17 LI 7 00 PH TE AR MA TE CY ST #4 ST 93 RI P FR 99 09 10 10 25 00 GA Ac EE 07 -1 -1 0. 00 L- ti ST 30 8- 3- 00 08 MA ve YL 13 20 20 0 84 RT E 00 17 17 17 28 1 01 PH G AR LA MA NC CY ET S #4 93 ME 53 08 09 12 30 00 GA Ac TF 74 -2 -1 0. 00 L- ti OR 60 5- 00 07 MA ve NE 17 20 20 0 42 RT N 80 17 17 09 HC 1 48 PH L AR ER MA CY 50 0 #4 MG 93 TA BL ET OR 68 08 09 12 2 00 WA Ac OM 38 -2 -1 .0 00 L- ti ET 20 1- 5- 00 07 MA ve LOPEZ 04 20 20 42 RT ZI 00 17 17 09 NE 1 38 PH AR 12 MA .5 CY MG #4 93 TA BL ET OR 68 08 09 12 2 00 WA [...] MA NC CY ET S #4 93 OR 68 07 08 12 2 00 WA [...] 60 5- 8- 00 07 MA ve NE 17 20 20 0 42 RT N 80 17 17 09 HC 1 48 PH L AR ER MA CY 50 0 #4 MG 93 TA BL ET OR 65 06 07 20 5 00 RI [...] OR 60 9- 4- 00 01 ve NE 14 20 20 64 AI N 20 17 17 93 D HC 1 66 PH L AR ER MA CY 50 0 #3 MG 94 3 TA BL ET OR 00 06 07 30 30 00 RI [...] ST #3 ST 94 RI 3 P FR 99 06 07 10 25 00 RI Ac EE 07 -0 -0 0. [address] 30 7- 7- 00 01 ve YL 13 20 20 0 66 AI E 00 17 17 62 D 28 1 61 PH G AR LA MA NC CY ET S #3 94 3 FL 16 05 06 2. 4 00 RI Ac UC 71 -2 -1 00 00 TE ti ON 40 2- 6- 0 01 ve AZ 69 20 20 66 AI OL 30 17 17 24 D E 1 11 PH 20 AR 0 MA MG CY TA #3 BL 94 ET 3 PH 42 05 06 10 3 00 RI Ac EN 19 -2 -1 .0 00 TE ti AZ 20 2- 6- 00 01 ve OP 80 20 20 66 AI YR 20 17 17 24 D ID 1 09 PH IN AR E MA 20 CY 0 MG #3 94 TA 3 B CI 00 05 06 20 10 00 RI Ac OR 14 -2 -1 .0 00 TE ti OF 39 2- 6- 00 01 ve LO 92 20 20 66 AI XA 80 17 17 24 D CI 1 10 PH N AR HC MA L CY 50 0 #3 MG 94 3 TA B ME 62 05 05 90 30 00 RI Ac TF 75 -0 -2 .0 00 TE ti OR 60 2- 6- 00 01 ve NE 14 20 20 64 AI N 20 17 17 93 D HC 1 66 PH L AR ER MA CY 50 0 #3 MG 94 3 TA BL ET ME 62 03 05 90 30 00 RI Ac TF 75 -3 -0 .0 00 TE ti OR 60 1- 5- 00 01 ve NE 14 20 20 64 AI N 20 17 17 93 D HC 1 66 PH L AR ER MA CY 50 0 #3 MG 94 3 TA BL ET ME 00 03 04 30 30 00 KE Ac TF 09 -1 -0 .0 00 NT ti OR 37 5- 7- 00 01 UC ve NE 26 20 20 04 [place] N 71 [...] 50 7- 7- 00 00 LL ve NE 26 20 20 33 N 00 17 [...] 82 -2 -1 00 00 TE ti NE 23 4- 7- 0 01 ve CO [...] 0 4 MG CA PS UL E OR 10 12 01 12 3 00 WA Ac OM 70 -1 -1 .0 00 LG ti ET 20 9- 3- 00 01 RE ve LOPEZ 00 20 20 67 EN ZI 35 16 17 54 S NE 0 17 07 66 25 4 MG TA BL ET Procedures Procedure DOS Code Location Performer [facility] 741 [facility] AMEZ[facility]ITA CERVICAL 5 REGIONAL REGIONAL MEDICAL MEDICAL SECTION [facility] 734 [facility] AMEZQUITA INDUCTION 5 REGIONAL REGIONAL OF LABOR MEDICAL MEDICAL [facility] Encounters Encounter Start End Date Code Location Performer Type [facility] - 7 7 [facility] 7 7 [facility] SPIRITISM [facility] 7 7 [facility] - 7 7 [facility] 7 7 [facility] IESHA & - 7 7 [facility] I[facility] & [facility] 7 7 [place] [facility] & - 7 7 [place] [facility] FAY - 6 6 [place] [facility] IES[facility] & - 6 6 [place] [facility] & - 6 6 [place] [facility] & - 6 6 [place] [facility] & - 6 6 [place] [facility] & - 6 6 [place] [facility] & - 6 6 [place] [facility] & - 6 6 [place] [facility] & - 6 6 [place] [facility] & - 6 6 [place] [facility] & - 6 6 [place] [facility] & [facility] 6 6 [place] [facility] & - 6 6 [facility] [facility] & - 6 6 [facility] [facility] & - 6 6 [facility] & - 6 6 [place] [facility] I[facility] & - 6 6 [place] [facility] I[facility] & - 6 6 [place] [facility] IESHA & - 6 6 [facility] IESHA & - 6 6 [facility] IESHA & - 5 5 [facility] IESHA & - 5 5 [facility] IESHA & [facility] 5 5 [facility] ALIRIO - 5 5 [facility]
--- OUTSIDE RECORDS SUMMARY | 2017-04-24 19:43 | External Medical Summary Rpt | CCD ---
Author Author , TONEY ZIEGLER Address Unknown Phone [email or web address] Care Team Providers Care Mac Artist Name Role Phone [facility] Unavailable Unavailable MEDICAL GROUP, [facility] Unavailable Unavailable [place], [facility] Unavailable [facility]available HOSPITAL, [facility] Unavailable Unavailable MEDICAL CENT[facility], [facility] Unavailable Unavailable ANESTHESIA [facility], [facility] EMERGENCY MEDICINE Unavailable Unavailable PHYSICIAN, EMERGENCY MEDICINE PHYSICIAN [facility] Un[facility] Un[facility], [facility], [facility]available Unavailable [facility], [facility], Unavailable Unavailable [facility]- [facility]available Unavailable [place], [facility] Un[facility] Unavailable [facility], [facility] Unavailable Un[facility], [facility] Unavailable Unavailable HOSPITALS, [facility] S[facility] CHERRY, Unavailable Unavailable [facility], Unavailable Unavailable [place], [facility] Unavailable [place], [facility] [place] Continuity of Care Document - 10-10-2014 through 2016 Problems Code Diagnosis DOS Provider Status [id number] PRE-EXISTIN 03-07-2017 [place] [facility] DIAB[facility]ES [facility] MELLITUS PREG 2ND TRI [id number] MATERNAL 03-07-2017 [facility] SERV TRANSVERSE [facility] & OBLIQUE LIE NA/UNS [id number] MATERNAL 03-07-2017 [facility]NS SERV TYPE SCAR [facility] PREV DEL Z36 ENCOUNTER 03-07-2017 [facility] SCREENING OF MOTHER Z3A20 20 WEEKS 03-07-2017 [place] [facility] SERV OF [facility] [id number] OTHER SPEC 02-26-2017 [facility] RELATED [facility] COND 2ND TRIMESTER R1030 LOWER 02-26-2017 [facility]AL [facility] PAIN PLLC UNSPECIFIED Z3A19 19 WEEKS 02-26-2017 [facility] GE[facility]ATION [facility]ANS, OF [facility] [id number] DECREASED 02-22-2017 [facility] MOVEMENTS [facility] THIRD TRIMESTER NA/UNS Z3A18 18 WEEKS 02-22-2017 [place] [facility] OF [facility] Z3A17 17 WEEKS 02-14-2017 [place] [facility] OF [facility] Z3A15 15 WEEKS 01-31-2017 [place] [facility] OF [facility] [id number] SUPERVISION 01-26-2017 [facility] RISK PREG HOSPITALS UNS TRIMESTER O219 VOMITING OF 01-06-2017 [facility] UNSPECIFIED F[facility] N30559 PRE-EXISTIN 01-06-2017 [facility] DIABETES [facility] MELLITUS PREG 1ST TRI Z3A11 11 WEEKS 01-06-2017 [place] [facility] OF [facility] Z8639 PERSONAL HX 01-06-2017 [facility] ENDOCRN [facility] NUTRITIONL& METAB DISEASE E119 TYPE 2 12-31-2016 [facility] DI[facility]ES [facility] MELLITUS HOSPITAL WITHOUT COMPLICATIO NS O7589 OTHER 12-31-2016 [facility] COMPLICATIO HOSPITAL NS LABOR & DELIVERY R102 PELVIC AND 12-31-2016 [facility] PERINEAL [facility] PAIN HOSPITAL O021 MISSED 12-14-2016 [facility] O200 THREATENED 12-14-2016 [facility] HOLDINGS Z3A08 8 WEEKS 12-14-2016 [facility] GESTATION HEALTH OF MEDICAL GROUP O2691 12-11-2016 [facility] RELATED HEALTH CONDITIONS KIRBY UNS 1ST TRIMESTER O9989 OTH DZ & 12-11-2016 [facility] COND COMP N EMERGENCY PREG PHYS CHILDBIRTH PUERPERIUM R109 UNSPECIFIED 12-11-2016 [facility] ABDOMINAL N EMERGENCY PAIN PHYS Z3A01 LESS THAN 8 12-11-2016 [facility] WEEKS N EMERGENCY GESTATION PHYS OF P06567 OTHER LONG 12-11-2016 [facility] TERM HEALTH CURRENT [place] DRUG THERAPY O4691 ANTEPARTUM 12-07-2016 [facility] HEMORRHAGE HEALTH OF UNS FIRST CURT TRIMESTER Z3480 ENC 12-07-2016 [facility] SUPERVISION HEALTH OF OT NORMAL [place] PREG UNS TRIMESTER Q77619 OTHER SPEC 12-04-2016 [facility] RELATED COND UNS TRIMESTER R1013 EPIGASTRIC 12-04-2016 EMERGENCY PAIN MEDICINE PHYSICIAN N921 EXCESS & 11-23-2016 [facility] FREQUENT HEALTH OF MENSTRUATIO [place] N W/IRREGULAR CYCLE A38687 MATERNAL 11-23-2016 [facility] CARE [facility] PREV DEL Z139 ENCOUNTER 11-23-2016 LAB YONG FOR [facility] SCREENING HOLDINGS UNSPECIFIED Z3490 ENC 11-23-2016 LAB YONG SUPERVISION [facility] NORMAL HOLDINGS PREG UNS UNS TRIMESTER L270 GEN SKIN 11-09-2016 [place] ERUPTION [facility] D/T RX & HOSPITAL MED TAKEN INTERNALLY [id number] ADVERSE EFF 11-09-2016 [place] [facility]ITY ANTI-INFECT HOSPITAL /PARASIT INIT ENC L02662N ADVERS EFF 11-09-2016 [facility] OTH RX MEDS N EMERGENCY BIO PHYS SUBSTANCES INIT ENC E039 HYPOTHYROID 11-08-2016 [facility] ISM [facility] UNSPECIFIED E6609 OTHER 11-08-2016 [facility] OBESITY DUE MEDICAL TO EXCESS CLINIC, [facility] CALORIES N390 URINARY 11-08-2016 [facility] TRACT MEDICAL INFECTION CLINIC, [facility] SITE NOT SPECIFIED R300 DYSURIA 11-08-2016 [facility], [facility] R5383 OTHER 11-08-2016 [facility] FATIGUE [facility] Z1321 ENCOUNTER 11-08-2016 [facility] & FOR [facility] SCREENING FOR NUTRITIONAL DISORDER B44551 ENCOUNTER 11-08-2016 [facility] & FOR [facility] SCREENING FOR LIPOID DISORDERS Z6832 BODY MASS 11-08-2016 [facility] INDEX BMI MEDICAL 32.0-32.9 CLINIC, [facility] ADULT M419 SCOLIOSIS 07-24-2016 [facility] CHERRY, [facility] M542 CERVICALGIA 07-24-2016 S[facility] CHERRY, [facility] M545 LOW BACK 07-24-2016 S[facility]MYA Gilmore PAIN DILIP, [facility] Z113 ENCOUNTER 07-22-2016 [facility] SCREEN MEDICAL INFECTIONS CLINIC, [facility] SEXL MODE TRANSMISSN Z6831 BODY MASS 07-22-2016 [facility] INDEX BMI MEDICAL 31.0-31.9 CLINIC, [facility] ADULT J029 ACUTE 07-13-2016 [facility] & PHARYNGITIS [facility] UNSPECIFIED N3001 ACUTE 07-13-2016 [facility] CYSTITIS [facility] WITH HEMATURIA R1110 VOMITING 06-06-2016 [facility] UNSPECIFIED N EMERGENCY PHYS M791 MYALGIA 04-23-2016 [facility] R079 CHEST PAIN 04-23-2016 S[facility] CHERRY K529 NONINFECTIV 03-02-2016 [facility] E [facility] GASTROENTER ITIS & COLITIS UNS V58146 PAIN IN 02-09-2016 [facility] LEFT MEDICAL SHOULDER [...] Y DISEASE [facility] OF CERVIX UTERI H59809 PAIN IN 01-06-2016 [facility] AlfonsoIfeoma LEFT KNEE DILIP [id number] CONTUSION 01-06-2016 [facility] & OF LEFT [facility] KNEE INITIAL ENCOUNTER Q96688D STRAIN 12-31-2015 EMERGENCY MUSCLE & MEDICINE TENDON BACK PHYSICIAN WALL THORAX INIT ENC A06934I SPRAIN 12-31-2015 EMERGENCY CALCANEOFIB MEDICINE ULAR LIG LT PHYSICIAN ANKLE INITIAL ENC R200 ANESTHESIA 12-23-2015 EMERGENCY OF SKIN MEDICINE PHYSICIAN Z760 ENCOUNTER 12-11-2015 [facility] FOR ISSUE MEDICAL OF REPEAT CLINIC, PSC PRESCRIPTIO N J96557 OTHER 11-14-2015 [facility] & MUCOPURULEN [facility] T CONJUNCTIVI TIS BILATERAL H1033 UNSPECIFIED 11-14-2015 EMERGENCY ACUTE MEDICINE CONJUNCTIVI PHYSICIAN TIS BILATERAL J069 ACUTE UPPER 11-10-2015 [facility] RESPIRATORY INFECTION UNSPECIFIED Q97386 UNSPECIFIED 11-10-2015 [facility] & ASTHMA [facility] UNCOMPLICAT ED R05 COUGH 11-10-2015 [facility] R509 FEVER 11-10-2015 [facility] & UNSPECIFIED [facility] Z794 SENIOR CARE 11-10-2015 [facility] & CURRENT USE [facility] OF INSULIN E860 DEHYDRATION 10-29-2015 EMERGENCY MEDICINE PHYSICIAN R112 NAUSEA WITH 10-29-2015 [facility] & VOMITING [facility] UNSPECIFIED R197 DIARRHEA 10-29-2015 [facility] & UNSPECIFIED [facility] N3000 ACUTE 10-05-2015 [facility] & CYSTITIS [facility] WITHOUT HEMATURIA R5382 CHRONIC 09-19-2015 [facility] FATIGUE MEDICAL UNSPECIFIED CLINIC, PSC A43279B INSECT BITE 09-12-2015 EMERGENCY MEDICINE NONVENOMOUS PHYSICIAN LT FOREARM INITIAL ENC E282 POLYCYSTIC 08-09-2015 [facility] & OVARIAN [facility] SYNDROME J449 CHRONIC 08-09-2015 [facility] & OBSTRUCTIVE [facility] PULMONARY DISEASE UNS K50776 PERSONAL 08-09-2015 [facility] & HISTORY OF [facility] URINARY TRACT INFECTIONS E669 OBESITY 07-23-2015 [facility] UNSPECIFIED PRIMARY CARE- ANTONELLA N946 DYSMENORRHE 07-23-2015 [facility] A PRIMARY UNSPECIFIED CARE- ANTONELLA M2550 PAIN IN 04-11-2015 [facility] UNSPECIFIED MEDICAL JOINT CLINIC, [facility] Z309 ENCOUNTER 04-11-2015 [facility] FOR MEDICAL CONTRACEPTI CLINIC, [facility] VE MANAGEMENT UNS 99552 OBESITY, 03-07-2015 [facility] UNSPECIFIED MEDICAL CLINIC, [facility] 6253 DYSMENORRHE 03-07-2015 [facility] A MEDICAL CLINIC, [facility] 32243 CHRONIC 03-07-2015 [facility] FATIGUE MEDICAL SYNDROME CLINIC, [facility] 5990 URINARY 02-09-2015 [facility] & TRACT [facility] INFECTION SITE NOT SPECIFIED 40020 HEMATURIA 02-09-2015 [facility] & UNSPECIFIED [facility] 5950 ACUTE 01-15-2015 [facility] & CYSTITIS [facility] 19523 ABDOMINAL 12-10-2014 S[facility]A S. PAIN OTHER DILIP SPECIFIED SITE 7831 ABNORMAL 11-28-2014 [facility] WEIGHT GAIN MEDICAL CLINIC, [facility] V221 SUPERVISION 11-10-2014 [facility]OMEN'S OF OTHER HEALTH OF NORMAL [place] 14050 ABN FETL 11-09-2014 [facility] HRT H RATE/RHYTHM ANESTHESIA DELIV W/WO PSC ANTPRTM COND 23928 PRIMARY 11-09-2014 [facility] UTERINE H INERTIA ANESTHESIA WITH P[facility] DELIVERY 5768 OTHER 11-08-2014 [facility] SPECIFIED REGIONAL DISORDERS MEDICAL OF BILIARY CENTE TRACT 08320 LIVER 11-08-2014 [facility] BILIARY REGIONAL TRACT D/O MEDICAL PREG DEL CENTE W/WO ANTPRTM 69473 OTH CURRENT 11-08-2014 [facility] MATERNAL REGIONAL CCE MEDICAL W/DELIVERY CENTE 24276 FETOPELVIC 11-08-2014 [facility] DISPROPORTI REGIONAL ON, MEDICAL DELIVERED CENTE 87680 OTHER AND 11-08-2014 [facility] UNSPECIFIED REGIONAL UTERINE MEDICAL INERTIA CENTE W/DELIVERY V0251 CARRIER/ALISSA 11-08-2014 [facility] PECTED REGIONAL [facility] B CENTE STREPTOCOCC [place] V270 OUTCOME OF 11-08-2014 [facility] DELIVERY REGIONAL SINGLE MEDICAL LIVEBORN CENTE 14133 EXCESS 10-10-2014 [facility] [place] AFFECT MGMT MOTH ANTPRTM Medications Na ND Rx Da Fi Fi Am Da Di Ph RX Ph St me C No te ll ll ou ys ag ar # ys at rm s nt no ma ic us Or Da si cy ia de te s n re d GL 00 09 10 30 30 00 MI Ac YB 09 -1 -1 .0 00 L- ti UR 38 8- 3- 00 07 MA ve ID 34 20 20 43 RT E 30 17 17 01 2. 1 50 PH 5 AR MG MA CY TA BL #4 ET 93 [place] 68 09 10 12 2 00 WA Ac OM 38 -1 -1 .0 00 L- ti ET 20 8- 3- 00 07 MA ve LOPEZ 04 20 20 42 RT ZI 00 17 17 09 NE 1 38 PH AR 12 MA .5 CY MG #4 93 TA BL ET ME 53 09 10 12 30 00 MI Ac TF 74 -1 -1 0. 00 L- ti OR 60 8- 3- 00 07 MA ve KS 17 20 20 0 42 RT N 80 17 17 09 HC 1 48 PH L AR ER MA CY 50 0 #4 MG 93 TA BL ET FR 99 09 10 10 25 00 MI Ac EE 07 -1 -1 0. 00 L- ti ST 30 8- 3- 00 08 MA ve YL 70 20 20 0 84 RT E 82 17 17 17 LI 7 00 PH TE AR MA TE CY ST #4 ST 93 RI P FR 99 09 10 10 25 00 MI Ac EE 07 -1 -1 0. 00 L- ti ST 30 8- 3- 00 08 MA ve YL 13 20 20 0 84 RT E 00 17 17 17 28 1 01 PH G AR LA MA NC CY ET S #4 93 ME 53 08 09 12 30 00 MI Ac TF 74 -2 -1 0. 00 L- ti OR 60 5- 00 07 MA ve KS 17 20 20 0 42 RT N 80 17 17 09 HC 1 48 PH L AR ER MA CY 50 0 #4 MG 93 TA BL ET [place] 68 08 09 12 2 00 WA Ac OM 38 -2 -1 .0 00 L- ti ET 20 1- 5- 00 07 MA ve LOPEZ 04 20 20 42 RT ZI 00 17 17 09 NE 1 38 PH AR 12 MA .5 CY MG #4 93 TA BL ET [place] 68 08 09 12 2 00 WA [...] MA NC CY ET S #4 93 [place] 68 07 08 12 2 00 WA [...] 60 5- 8- 00 07 MA ve KS 17 20 20 0 42 RT N 80 17 17 09 HC 1 48 PH L AR ER MA CY 50 0 #4 MG 93 TA BL ET [place] 65 06 07 20 5 00 RI [...] OR 60 9- 4- 00 01 ve KS 14 20 20 64 AI N 20 17 17 93 D HC 1 66 PH L AR ER MA CY 50 0 #3 MG 94 3 TA BL ET [place] 00 06 07 30 30 00 RI [...] 05 06 20 10 00 RI Ac KY 14 -2 -1 .0 00 TE ti [...] OR 60 2- 6- 00 01 ve KS 14 20 20 64 AI N 20 17 17 93 D HC 1 66 PH L AR ER MA CY 50 0 #3 MG 94 3 TA BL ET ME 62 03 05 90 30 00 RI Ac TF 75 -3 -0 .0 00 TE ti OR 60 1- 5- 00 01 ve KS 14 20 20 64 AI N 20 17 17 93 D HC 1 66 PH L AR ER MA CY 50 0 #3 MG 94 3 TA BL ET ME 00 03 04 30 30 00 KE Ac TF 09 -1 -0 .0 00 NT ti OR 37 5- 7- 00 01 UC ve KS 26 20 20 04 [place] N 71 [...] 50 7- 7- 00 00 LL ve KS 26 20 20 33 N 00 17 [...] 82 -2 -1 00 00 TE ti KS 23 4- 7- 0 01 ve CO [...] 0 4 MG CA PS UL E [place] 10 12 01 12 3 00 WA Ac OM 70 -1 -1 .0 00 LG ti ET 20 9- 3- 00 01 RE ve LOPEZ 00 20 20 67 EN ZI 35 16 17 54 S NE 0 17 07 66 25 4 MG TA BL ET Procedures Procedure DOS Code Location Performer [facility] 741 [facility] CERVICAL 5 [facility]AL [facility]AL MEDICAL MEDICAL SECTION [facility] 734 [facility] AMEZ[facility] INDUCTION 5 REGIONAL REGIONAL OF LABOR MEDICAL MEDICAL [facility] Encounters Encounter Start End Date Code Location Performer Type [facility] 7 7 [facility] SABIANISM - 7 7 [facility] - 7 7 [facility] 7 [facility] IESHA & - 7 7 [facility] IESHA & - 7 7 [facility] IESHA & [facility] 7 7 [facility] FAY - 6 6 [facility] IESHA & - 6 6 [facility] IESHA & [facility] 6 6 [facility] IESHA & - 6 6 [facility] IESHA & - 6 6 [facility] IESHA & - 6 6 [facility] IESHA & [facility] 6 6 [facility] IESHA & - 6 6 [facility] IES[facility] & - 6 6 [facility] IES[facility] & - 6 6 [facility] IESHA & - 6 6 [facility] IESHA & [facility] 6 6 [facility] IESHA & - 6 6 [facility] IESHA & [facility] 6 6 [facility] IESHA & [facility] 6 6 [facility] IESHA & [facility] 6 6 [facility] IESHA & - 6 6 [facility] IESHA & [facility] 6 6 [facility] IESHA & - 6 6 [facility] IESHA & - 6 6 [facility] IESHA & - 5 5 [facility] IESHA & [facility] 5 5 [facility] IESHA & - 5 5 [facility] - 5 5 [facility]
--- OUTSIDE RECORDS SUMMARY | 2017-04-24 19:44 | External Medical Summary Rpt ---
Author Author VANESSABRICE Sultana, [employer] Organization [employer] Address Unknown Phone Unavailable Results Glucose [Mass/volume] in Capillary blood by Glucometer Observa Value Referen Units Interpr Notes Date tion ce etation Range Glucose 70 - 110 mg/dl Normal No Sep 26 [Mass/vol informati 2017 7:21 ume] in on in PM Capillary source blood by data Glucomete r Urinalysis dipstick W Reflex Microscopic panel in Urine Observa Value Referen Units Interpr Notes Date tion ce etation Range Collected by nurse? Y Hold specimen in OE? N Appeara SL CLEAR No No No Mar 15 nce of CLOUDY informa informa informa 2017 Urine tion in tion in tion in 6:55 PM source source source data data data Bacteri 2+ O No No No Mar 15 a informa informa informa 2017 [Presen tion in tion in tion in 6:55 PM ce] in source source source Urine data data data sedimen t by Light microsc opy Bilirub NEGATIV NEG No No No Mar 15 in E informa informa informa 2017 [Presen tion in tion in tion in 6:55 PM ce] in source source source Urine data data data by Test strip Erythro NEGATIV NEG No No No Mar 15 cytes E informa informa informa 2016 [Presen tion in tion in tion in 6:55 PM ce] in source source source Urine data data data Color YELLOW YELLOW No No No Mar 15 of informa informa informa 2017 Urine tion in tion in tion in 6:55 PM source source source data data data Glucose NEG No No No Mar 15 [Mass/vol informati informati informati 2017 6:55 ume] in on in on in on in PM Urine by source source source Test data data data strip Ketones NEGATIV NEG mg/dL No No Mar 15 E informa informa 2016 [Presen tion in tion in 6:55 PM ce] in source source Urine data data by Automat ed test strip Mucus NEGATIV NEG No No No Sep 26 [Presen E informa informa informa 2017 ce] in tion in tion in tion in 6:55 PM Urine source source source sedimen data data data t by Light microsc opy Mucus 2+ OCC No No No Sep 26 [Presen informa informa informa 2017 ce] in tion in tion in tion in 6:55 PM Urine source source source sedimen data data data t by Light microsc opy Nitrite NEGATIV NEG No No No Sep E informa informa informa 2016 [Presen tion in tion in tion in 6:55 PM ce] in source source source Urine data data data by Test strip pH of 5.0 - 8.5 No Normal No Sep 26 Urine informati informati 2017 6:55 on in on in PM source source data data Protein NEG mg/dL No No Sep 26 [Mass/vol informati informati 2017 6:55 ume] in on in on in PM Urine by source source Automated data data test strip Erythro OCC 0 rbc/hpf No No Sep 26 cytes informa informa 2017 [Presen tion in tion in 6:55 PM ce] in source source Urine data data sedimen t by Light microsc opy Specific 1.005 - No Normal No Sep 26 gravity 1.030 informati informati 2017 6:55 of Urine on in on in PM source source data data Epithel 20-50 0 - 5 #/hpf No No Sep 26 ial informa informa 2017 cells.s tion in tion in 6:55 PM quamous source source data data [Presen ce] in Urine sedimen t by Microsc opy high power field Urobili 0.2 NEG E.U./dL No No Sep 26 nogen informa informa 2017 [Presen tion in tion in 6:55 PM ce] in source source Urine data data by Test strip Leukocy [3 O wbc/hpf No No Sep 26 bruce wbc/hpf informa informa 2017 [#/volu ; 5 tion in tion in 6:55 PM me] in wbc/hpf source source Urine ] data data Drugs identified in Urine by Screen method Observa Value Referen Units Interpr Notes Date tion ce etation Range Collected by nurse? Y Hold specimen in OE? N Positive urine drug screen samples are stored for 7 days. Contact the Lab if confirmation of positives is needed. Ampheta NEGATIV <1000 ng/mL No No Mar 15 mine E informa informa 2017 [Presen tion in tion in 6:55 PM ce] in source source Urine data data by Screen method Barbitura <200 ng/mL No No Mar 15 bruce informati informati 2017 6:55 [Mass/vol on in on in PM ume] in source source Urine by data data Screen method Benzodiaz 200 ng/mL ng/mL No No Mar 15 epines informati informati 2017 6:55 [Mass/vol on in on in PM ume] in source source Serum or data data Plasma by Screen method Cocaine <300 ng/g No No Mar 15 [Mass/vol informati informati 2017 6:55 ume] in on in on in PM Unspecifi source source ed data data specimen Methadone <300 ng/mL No No Mar 15 informati informati 2016 6:55 [Mass/vol on in on in PM ume] in source source Unspecifi data data ed specimen Opiates <300 ng/mL No No Mar 15 [Mass/vol informati informati 2017 6:55 ume] in on in on in PM Unspecifi source source ed data data specimen Phencycli <25 ng/mL No No Mar 15 dine informati informati 2017 6:55 [Mass/vol on in on in PM ume] in source source Unspecifi data data ed specimen 11-Hydr NEGATIV <50 ng/mL No No Mar 15 oxy E informa informa 2017 delta-9 tion in tion in 6:55 PM source source tetrahy data data drocann abinol [Presen ce] in Unspeci fied specime n Urinalysis dipstick W Reflex Microscopic panel in Urine Observa Value Referen Units Interpr Notes Date tion ce etation Range Collected by nurse? Y Hold specimen in OE? N Appeara SL CLEAR No No No Sep 26 nce of CLOUDY informa informa informa 2017 Urine tion in tion in tion in 6:55 PM source source source data data data Bilirub NEGATIV NEG No No No Mar 15 in E informa informa informa 2017 [Presen tion in tion in tion in 6:55 PM ce] in source source source Urine data data data by Test strip Erythro NEGATIV NEG No No No Sep cytes E informa informa informa 2016 [Presen tion in tion in tion in 6:55 PM ce] in source source source Urine data data data Color YELLOW YELLOW No No No Sep 26 of informa informa informa 2017 Urine tion in tion in tion in 6:55 PM source source source data data data Glucose NEG No No No Sep 26 [Mass/vol informati informati informati 2017 6:55 ume] in on in on in on in PM Urine by source source source Test data data data strip Ketones NEGATIV NEG mg/dL No No Sep E informa informa 2016 [Presen tion in tion in 6:55 PM ce] in source source Urine data data by Automat ed test strip Mucus NEGATIV NEG No No No Sep [Presen E informa informa informa 2016 ce] in tion in tion in tion in 6:55 PM Urine source source source sedimen data data data t by Light microsc opy Nitrite NEGATIV NEG No No No Sep E informa informa informa 2016 [Presen tion in tion in tion in 6:55 PM ce] in source source source Urine data data data by Test strip pH of 5.0 - 8.5 No Normal No Sep 26 Urine informati informati 2017 6:55 on in on in PM source source data data Protein NEG mg/dL No No Sep 26 [Mass/vol informati informati 2017 6:55 ume] in on in on in PM Urine by source source Automated data data test strip Specific 1.005 - No Normal No Sep 26 gravity 1.030 informati informati 2017 6:55 of Urine on in on in PM source source data data Urobili 0.2 NEG E.U./dL No No Sep 26 nogen informa informa 2017 [Presen tion in tion in 6:55 PM ce] in source source Urine data data by Test strip Comprehensive metabolic 2000 panel in Serum or Plasma Observa Value Referen Units Interpr Notes Date tion ce etation Range Albumin/G 1.1 - 1.8 No Low No Sep 9 lobulin informati informati 2017 7:50 [Mass on in on in PM ratio] in source source Serum or data data Plasma Albumin 3.4 - 5.0 gm/dL Low No Sep 9 [Mass/vol informati 2017 7:50 ume] in on in PM Serum or source Plasma data Alkaline 46 - 116 U/L Normal No Sep 9 phosphata informati 2017 7:50 se on in PM [Enzymati source c data activity/ volume] in Serum or Plasma Bilirubin 0.2 - 1.0 mg/dL Normal No Sep 9 .total informati 2017 7:50 [Mass/vol on in PM ume] in source Serum or data Plasma Urea 7 - 18 mg/dL Low No Sep 9 nitrogen informati 2017 7:50 [Mass/vol on in PM ume] in source Serum or data Plasma Calcium 8.5 - mg/dL Normal No Sep 9 [Mass/vol 10.1 informati 2017 7:50 ume] in on in PM Serum or source Plasma data Chloride 98 - 107 mmoL/L Normal No Sep 9 [Moles/vo informati 2017 7:50 lume] in on in PM Serum or source Plasma data Carbon 21.0 - mmoL/L Normal No Sep 9 dioxide, 32.0 informati 2017 7:50 total on in PM [Moles/vo source lume] in data Serum or Plasma Creatinin 0.55 - mg/dL Low No Sep 9 e 1.02 informati 2017 7:50 [Mass/vol on in PM ume] in source Serum or data Plasma Creatinin 50 - 200 ML/MIN High No Sep 9 e renal informati 2017 7:50 clearance on in PM source predicted data by Cockcroft -Gault formula Estimated 59- ML/MIN No REFERENCE Sep 9 informati RANGE: 2017 7:50 glomerula on in >60 PM r source ML/MIN/1. filtratio data 73 SQUARE n rate METERSIf (GF this patient is -A merican, then multiply theresult by 1.210. Globulin 1.3 - 3.2 gm/dL High No Sep 9 [Mass/vol informati 2017 7:50 ume] in on in PM Serum source data Glucose 74 - 106 mg/dL Normal No Sep 9 [Mass/vol informati 2017 7:50 ume] in on in PM Serum or source Plasma data Potassium 3.5 - 5.1 mmoL/L Normal No Sep 9 informati 2017 7:50 [Moles/vo on in PM lume] in source Serum or data Plasma Sodium 136 - 145 mmoL/L Normal No Sep 9 [Moles/vo informati 2016 7:50 lume] in on in PM Serum or source Plasma data Aspartate 15 - 37 U/L Low No Sep 9 inform2016 7:50 aminotran on in PM sferase source [Enzymati data c activity/ volume] in Serum or Plasma Alanine 12 - 78 U/L Normal No Sep 9 aminotran 2016 7:50 sferase on in PM [Enzymati source c data activity/ volume] in Serum or Plasma Protein 6.4 - 8.2 gm/dL Normal No Sep 9 [Mass/vol informati 2016 7:50 ume] in on in PM Serum or source Plasma data CBC W Auto Differential panel in Blood Observa Value Referen Units Interpr Notes Date tion ce etation Range Basophils 0 - 0.2 K/MM3 Normal No Sep 9 inform2016 7:50 [#/volume on in PM ] in source Blood by data Automated count Basophils 0.1 - 2.0 % Normal No Sep 9 /100 informati 2016 7:50 leukocyte on in PM s in source Blood by data Automated count Eosinophi 0.0 - 0.4 K/mm3 Normal No Sep 9 ls informati 2016 7:50 [#/volume on in PM ] in source Blood by data Automated count Eosinophi 0.1 - % Normal No Sep 9 ls/100 12.0 informati 2016 7:50 leukocyte on in PM s in source Blood by data Automated count Granulocy 1.8 - 7.8 K/mm3 Normal No Sep 9 bruce informati 2016 7:50 [#/volume on in PM ] in source Blood by data Automated count Granulocy 37.0 - % Normal No Sep 9 bruce/100 80.0 informati 2016 7:50 leukocyte on in PM s in source Blood by data Automated count Hematocri 37.0 - % Normal No Sep 9 t [Volume 47.0 informati 2016 7:50 on in PM Fraction] source of Blood data Hemoglobi 12.2 - g/dL Normal No Sep 9 n 16.2 informati 2016 7:50 [Mass/vol on in PM ume] in source Blood data Lymphocyt 0.7 - 4.5 K/mm3 Normal No Sep 9 es ati 2016 7:50 [#/volume on in PM ] in source Unspecifi data ed specimen by Automated count Lymphocyt 10 - 50.0 % Normal No Sep 9 es informati 2016 7:50 [#/volume on in PM ] in source Unspecifi data ed specimen by Automated count Erythrocy 27 - 31.2 pg Normal No Sep 9 te mean informati 2017 7:50 corpuscul on in PM ar source hemoglobi data n [Entitic mass] Erythrocy 31.8 - g/dl Normal No Sep 9 te mean 35.4 informati 2017 7:50 corpuscul on in PM ar source hemoglobi data n concentra tion [Mass/vol ume] by Automated count Erythrocy 82.2 - fl Normal No Sep 9 te mean 97.8 informati 2016 7:50 corpuscul on in PM ar volume source [Entitic data volume] by Automated count Monocytes 0.1 - 1.0 K/mm3 Normal No Sep 9 informati 2016 7:50 [#/volume on in PM ] in source Blood by data Automated count Monocytes 1.7 - 9.3 % Normal No Sep 9 /100 informati 2017 7:50 leukocyte on in PM s in source Blood by data Automated count Platelet 7.4 - fl Normal No Sep 9 mean 10.4 informati 2017 7:50 volume on in PM [Entitic source volume] data in Blood by Automated count Platelets 142 - 424 K/mm3 Normal No Sep 9 informati 2017 7:50 [#/volume on in PM ] in source Blood data Erythrocy 4.2 - 5.4 M/mm3 Normal No Sep 9 bruce informati 2017 7:50 [#/volume on in PM ] in source Amniotic data fluid Erythrocy 11.5 - % Normal No Sep 9 te 17.5 informati 2016 7:50 distribut on in PM ion width source [Entitic data volume] by Automated count Leukocyte 4.8 - K/MM3 Normal No Sep 9 s 10.8 informati 2016 7:50 [#/volume on in PM ] in source Blood data Urine test by rapid immunoassa Observa Value Referen Units Interpr Notes Date tion ce etation Range Urine POSITIV NEG No No INTERNA Sep 9 pregnan E informa informa L 2017 cy test tion in tion in CONTROL 6:59 PM by source source OK? : rapid data data YES immunoa ssa 7 1906 Silva z,Angelika ty Urinalysis macro (dipstick) panel in Urine Observa Value Referen Units Interpr Notes Date tion ce etation Range Appeara Clear CLEAR No No No Sep 9 nce of informa informa informa 2017 Urine tion in tion in tion in 6:40 PM source source source data data data Bilirub 1+ NEG No Abnorma BILIRUB Sep 9 in informa l IN 2017 [Presen tion in CONFIRM 6:40 PM ce] in source ED WITH Urine data by Test ICTOTES strip T Erythro NEGATIV NEG No No No Sep 9 cytes E informa informa informa 2017 [Presen tion in tion in tion in 6:40 PM ce] in source source source Urine data data data Color YELLOW YELLOW No No No Sep 9 of informa informa informa 2017 Urine tion in tion in tion in 6:40 PM source source source data data data Glucose NEG No No No Sep 9 [Mass/vol informati informati informati 2017 6:40 ume] in on in on in on in PM Urine by source source source Test data data data strip Ketones 80 NEG mg/dL No No Sep 9 informa informa 2017 [Presen tion in tion in 6:40 PM ce] in source source Urine data data by Automat ed test strip pH of 5.0 - 8.5 No Normal No Sep 9 Urine informati informati 2017 6:40 on in on in PM source source data data Protein NEG mg/dL No No Sep 9 [Mass/vol informati informati 2017 6:40 ume] in on in on in PM Urine by source source Automated data data test strip Specific 1.005 - No Normal No Sep 9 gravity 1.030 informati informati 2017 6:40 of Urine on in on in PM source source data data Leukocy NEGATIV NEG No No No Sep 9 te E informa informa informa 2017 esteras tion in tion in tion in 6:40 PM e source source source [Presen data data data ce] in Urine by Automat ed test strip Nitrite NEGATIV NEG No No No Sep 9 E informa informa informa 2017 [Presen tion in tion in tion in 6:40 PM ce] in source source source Urine data data data by Test strip Urobili 1.0 NEG E.U./dL No No Sep 9 nogen informa informa 2017 [Presen tion in tion in 6:40 PM ce] in source source Urine data data by Test strip
--- OUTSIDE RECORDS SUMMARY | 2017-04-24 19:44 | External Medical Summary Rpt ---
[...] data YES immunoa ssa 7 1906 Silva z,Angelkia ty Urinalysis macro (dipstick) panel in Urine [...]
--- OUTSIDE RECORDS SUMMARY | 2017-04-24 19:44 | External Medical Summary Rpt | CCD ---
Author Author , TONEY ZIEGLER Address Unknown Phone [email or web address] Immunization Name Date Rout CVX Reac Dose Comm Prov Is Faci e tion ent ider Refu lity Give sed n Infl 10-1 150 0.5 Hist [facility] No [facility] uenz 3-20 mL oric 1 1 a 17 al Quad Info Inj rmat ion - Sour ce Unsp ecif ied Hep 03-2 8 999 Hist H133 No H133 B, 7-20 oric ped/ 00 al adol Info rmat ion - Sour ce Unsp ecif ied Hep 09-0 8 999 Hist H133 No H133 B, 9-19 oric ped/ 99 al adol Info rmat ion - Sour ce Unsp ecif ied Hep 08-0 8 999 Hist H133 No H133 B, 9-19 oric ped/ 99 al adol Info rmat ion - Sour ce Unsp ecif ied MMR 08-0 Intr 3 999 Hist H133 No H133 9-19 amus oric 99 cula al r Info rmat ion - Sour ce Unsp ecif ied
--- OUTSIDE RECORDS SUMMARY | 2017-04-24 19:44 | External Medical Summary Rpt | CCD ---
Author Author , TONEY ZIEGLER Address Unknown Phone [email or web address] Immunization Name Date Rout CVX Reac Dose [...]
[2017-04-24 19:52] LABS: HEMOGLOBIN 12.8 g/dL (12.2-16.2); LYMPH # 2.2 K/mm3 (0.7-4.5); LYMPH % 22.7 % (10-50.0)
[2017-04-24 19:55] LABS: URINE BILIRUBIN - DIPSTICK NEGATIVE (NEG); URINE BLOOD NEGATIVE (NEG)
--- NOTE | 2017-04-24 20:18 | Emergency Room Report ---
History of Present Illness Time Seen by 2010 Presenting Problem in Triage Pt arrived:Walked Presenting Problem:PT ADVISES THAT SHE IS 27 WEEKS AND HAS BEEN HAVING N/V, LOWER BACK PAIN, CHILLS, AND LOPEZ Onset of symptoms date/time:/ or onset unknown for:MEDICAL HX UNKNOWN Treatment Prior to Arrival: 12.5MG PHENERGAN 1730 [employer] Provided by:SELF Sepsis Risk Assessment: Temp: 98.6 B/P: 112/68 MAP: 82 Pulse: 100 Resp: 16 Recent fever? N Clinical Suspician of Infection? N Mental Status: 1 - Regular (Normal Baseline) Sepsis Risk:Low Sepsis Risk Have you (or family members/close friends) recently traveled outside the [place]? N If Yes, where/when: Have you had exposure to infectious disease within the past month? N TB? Other? Specify: Comment The patient is 27 weeks' gestation and complains of low back pain, vomiting, chills. She is had back pain for 2 days. The other symptoms started today. She denies urinary symptoms, but says she has a history of urinary tract infections. She denies diarrhea. She has tried Phenergan for the vomiting without improvement. She is 4, para 1, with a history of cholestasis of in her first . Her environmental aid is in [place]. ALLERGIES Coded Allergies: azithromycin (Mild, 02/26/17) fluconazole (From DIFLUCAN) (Mild, 02/26/17) tetanus and diphtheria toxoids (Mild, 02/26/17) Home Medications Reported Medications Metformin HCl (Metformin ER) 500 MG PO BID #2 VIT37/IRON/FOLIC ACID ([place] Chewable Tablet) 1 CTB PO DAILY #2 Glyburide (Diabeta 2.5MG) 2.5 MG PO DAILY-DM History Medical History General CAD? No Angina: No [place]: No Hypertension? No Hyperlipidemia? No CHF? No DVT? No PE? No COPD? No Asthma? No Anemia? No GERD? No Gastric ulcers? No GI Bleed? No Hernia? No Thyroid Problems? No Hypothyroidism? No CVA? No Seizures? No Diabetes? No Renal Insuffiency? No End Stage Renal Disease? No UTI? Yes Stones? No BPH? No GB Disease: Yes Nephritic Syndrome? No Asplenia? No Hepatitis? No Sickle Cell Disease? No Arthritis? No Migraines? No Cataracts? No Glaucoma? No MRSA? No HIV? No TB? No Anxiety? No Depression? No Cancer? No More? 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 Musculoskeletal back pain Physical Exam Vital Signs Vital Signs Date Time Temp Pulse Resp B/P Pulse O2 O2 Flow FiO2 Ox Delivery Rate 04/24 2145 98.2 85 16 99/51 99 2 04/24 2112 98.1 87 16 100/54 98 04/24 1928 98.6 100 16 112/68 98 General Appearance no apparent distress Eye Exam - bilateral eye normal exam, bilateral eye PERRL, bilateral eye EOMI Ear, Nose, Throat hearing grossly normal, normal ENT inspection Neck normal inspection, non-tender, supple, full range of motion Respiratory Status Yes: trachea midline, chest symmetrical, non tender chest. No: respiratory distress. Lung Sounds bilateral: normal breath sounds, lungs clear. Cardiovascular normal exam, regular rate/rhythm, no peripheral edema, no gallop, no JVD, no murmur, no rub, normal peripheral pulses Peripheral Pulses Pulses normal Yes Gastrointestinal normal bowel sounds, normal exam, non tender, soft, no organomegaly Back normal inspection, no CVA tenderness, no vertebral tenderness Extremities non-tender, normal range of motion, normal inspection Neurologic alert Mental status normal mood/affect Skin intact, normal color, warm/dry Medical Decision Making LABS/Meds/Orders Pt receiving controlled substance in ED? No Results/Orders Laboratory Tests 04/24/170: Sodium 137, Potassium 3.8, Chloride 103, Carbon Dioxide 22, BUN 2 L, Creatinine 0.3 L, Estimated Creat Clear 355 H, Estimated GFR (MDRD) 263, Glucose 77, Calcium 9.5, Total Bilirubin 0.4, AST 12 L, ALT 17, Alkaline Phosphatase 77, Total Protein 6.8, Albumin 3.0 L, Globulin 3.8 H, Albumin/Globulin Ratio 0.8 L, WBC 9.5, RBC 4.48, Hgb 12.8, Hct 37.6, MCV 84.0, RDW 14.5, Plt Count 233, MPV 7.9, Gran % 71.2, Gran # 6.8, Lymphocytes % 22.7, Monocytes % 4.8, Eosinophils % 1.1, Basophils % 0.1, Lymphocytes # 2.2, Monocytes # 0.5, Eosinophils # 0.1, Basophils # 0.0, PUBS MCHC 34.0, MCH 28.6 04/24/171929: Urine Color YELLOW, Urine Appearance CLEAR, Urine pH 7.0, Ur Specific [place] 1.010, Urine Protein NEGATIVE, Urine Ketones TRACE H, Urine Blood NEGATIVE, Urine Nitrate NEGATIVE, Urine Bilirubin NEGATIVE, Urine Urobilinogen 0.2, Ur Leukocyte Esterase 1+ H, Urine WBC 5-10, Ur Squamous Epith Cells 5-10, Urine Bacteria 1+, Urine Glucose NEGATIVE Current Medication Orders Sig/Gerard Start time Last Medication Dose Route Stop Time Status Admin Metoclopramide HCl 0 .STK-MED ONE 04/24 2031 DC .ROUTE Ceftriaxone Sodium 1 GM ONCE ONE 04/24 2030 DC 04/24 Sodium Chloride 50 ML IV 04/24 Metoclopramide HCl 5 MG ONCE ONE 04/24 2030 DC 04/24 IVP 04/24 Sodium Chloride 1,000 ML .Q1H1M 04/24 2030 DC 04/24 IV 04/24 Sodium Chloride 1,000 ML .STK-MED ONE 04/24 2030 DC IV Ceftriaxone Sodium 0 .STK-MED ONE 04/24 2029 DC .ROUTE Sodium Chloride 100 ML .STK-MED ONE 04/24 2029 DC IV Sodium Chloride 10 ML PRN PRN 04/24 1945 DCD IV 04/25 1932 Orders Procedure Date/time Status IV SALINE LOCK 04/24 1932 Active URINALYSIS/COMPLETE 04/24 1932 Complete URINE 04/24 1932 Complete CBC WITH AUTO DIFF 04/24 1932 Complete CHEM 12 PROFILE 04/24 1932 Complete CULTURE, URINE 04/24 1930 Active Progress - 8:30 PM: Discussed results. Discussed options for treatment of nausea. The patient prefers to try Reglan. I discussed the possibility of UTI and the fact that urine is equivocal, urine culture will be needed to determine whether she has urinary tract infection. She and family would prefer her treated for UTI while culture results are pending. 9:24 PM: Nurse reports heart tones 151. 9:32 PM: Patient states she feels better, nausea is improved. She requests Reglan for home use. Departure Departure Disposition DC Home or Self Care(routine) Clinical Impression Primary Impression: Vomiting Qualifiers: Vomiting type: unspecified Vomiting Intractability: intractable Nausea presence: with nausea Qualified Code: R11.2 - Nausea with vomiting, unspecified Secondary Impressions: Back pain Qualifiers: Back pain location: low back pain Chronicity: acute Back pain laterality: bilateral Sciatica presence: without sciatica Qualified Code: M54.5 - Low back pain Condition STABLE Patient Instructions Nausea and Vomiting-Adult Additional Instructions Call your environmental aid tomorrow for follow-up. Follow-up culture results in 2-3 days. Return to the emergency department if intractable vomiting, fever greater than 101 degrees, intolerable pain. Prescriptions Current Visit Scripts Metoclopramide Hcl (Reglan) 5 MG PO TIDP PRN nausea, vomiting #10 TAB Cephalexin (Keflex 500MG) 500 MG PO TID #30 CAP ED Critical Care Critical Care No at 2210
[2017-04-24] MEDS ORDERED: KEFLEX500 M1 PO (21:33)
[2017-04-24] MEDS ORDERED: REGLAN 5MG TABLE5 MG PO (21:33)
[2017-04-24 21:45] VITALS: BP 99/51
== END 2017-04-24 21:54 | disposition home or self-care (01) ==
LOC: ER 19:15
PROVIDERS: Emergency Medicine
DX: R11.2 Nausea with vomiting, unspecified (principal); M54.5 Low back pain; Z34.02 Encounter for supervision of normal first pregnancy, second trimester